=== PATIENT | male | born 1960 | race Caucasian/White ===

== ENCOUNTER 2020-10-14 14:36 | Emergency (ER) | payer MEDICAID, SELFPAY ==
[2020-10-14] VITALS (7 sets, daily range): BP systolic 123–153; BP diastolic 77–90; PULSE 60–76; RESP 17; TEMP 36.8; O2SAT 94–100; BMI 22.8
--- NOTE | 2020-10-14 14:39 | PC.NURSE ---
Trauma alert called @ 1438 MD cancelled trauma alert @ [id number]
--- NOTE | 2020-10-14 14:41 | XR_ITS ---
PROCEDURE: XR PELVIS 1-2V CLINICAL INDICATION: trauma Posttraumatic pain COMPARISON: No exams were available for comparison TECHNIQUE: XR Pelvis AP View FINDINGS: No fracture or dislocation is evident. No significant degenerative change. No lytic or blastic change. IMPRESSION: No acute findings. Dictated by: Omid Garcia MD 10/14/2020 15:13 Omid Garcia MD in [facility] 10/14/2020 15:13
--- NOTE | 2020-10-14 14:41 | XR_ITS ---
PROCEDURE: XR CHEST PORTABLE CLINICAL HISTORY: trauma Posttraumatic pain COMPARISON: CR CXR CHEST(2 VIEWS-NOT PORTABLE) from 10/06/2017 CR Chest from 04/19/2019 CR Chest from 05/02/2019 FINDINGS: The cardiomediastinal silhouette and pulmonary vascularity are within normal limits. The lungs are clear without infiltrates, suspicious nodules, or pleural effusions. No acute bony abnormalities. IMPRESSION: No acute findings. Dictated by: Oimd Garcia MD 10/14/2020 15:14 Omid Garcia MD in [facility] 10/14/2020 15:14
[2020-10-14 14:55] LABS: Chloride 103 mmol/L (98-107); Potassium 3.6 mmoL/L (3.5-5.1); Sodium 137 mmol/L (136-145)
[2020-10-14 14:57] LABS: Blood Urea Nitrogen 12 mg/dl (9-20)
[2020-10-14 14:58] LABS: Alanine Aminotransferase 36 U/L (12-78); Albumin Level 4.6 g/dl (3.5-5.0); Albumin/Globulin Ratio 1.6 (1.1-1.8); Alkaline Phosphatase 67 U/L (38-126); Anion Gap 10.6 mEq/L (5-15); Aspartate Amino Transferase 41 U/L (17-59); Bilirubin,Total 0.9 mg/dl (0.2-1.3); Calcium 9.7 mg/dl (8.4-10.2); Carbon Dioxide 27 mmol/L (22.0-30.0); Creatinine Clearance Estimated 70 mL/min (50-200); Estimated Glomerular Filt Rate 69 ml/min (>60); GFR (African American) 83 ML/MIN (>60); Globulin 2.9 g/dL (1.3-3.2); Glucose 145 mg/dl (74-100); Lipase 82 U/L (23-300); Total Protein,Serum 7.5 g/dl (6.3-8.2)
--- NOTE | 2020-10-14 14:58 | PC.NURSE ---
Radiology has been at bedside and is leaving now.
--- NOTE | 2020-10-14 15:08 | CT_ITS ---
PROCEDURE: CT BONY PELVIS CLINICAL INDICATION: fall from raya Blunt trauma with injury and pain, contusion/abrasion or hematoma following injury COMPARISON: No exams were available for comparison TECHNIQUE: Axial images obtained with sagittal and coronal reformats. All CT scans at the facility use one or more dose reduction, viz: automated exposure control, ma/kV adjustment per patient size (including targeted exams where dose is matched to indication, i.e. head), or iterative reconstruction technique. FINDINGS: Nondisplaced fracture involves the left L4 transverse process. There is fusion of the left SI joint. There are bilateral well-corticated densities at the anterior columns of the acetabuli consistent with os acetabuli. Hypertrophic changes are present along the greater trochanters of both femurs. There is mild distention of the urinary bladder. There are bilateral inguinal hernias containing fat. Mild osteoarthritic changes are present involving the hips IMPRESSION: 1. Nondisplaced fracture left L4 transverse process. 2. No other acute fracture apparent. 3. Distended urinary bladder. Bilateral inguinal hernias containing fat and small umbilical hernia containing fat. Dictated by: Omid Garcia MD 10/14/2020 18:21 Omid Garcia MD in [facility] 10/14/2020 18:21
--- NOTE | 2020-10-14 15:09 | CT_ITS ---
PROCEDURE: CT ABDOMEN PELVIS W CON CLINICAL INDICATION: fall from height Blunt trauma with injury and pain, contusion/abrasion or hematoma following injury COMPARISON: CT CT LUMBAR SPINE WO CON from 10/14/2020 TECHNIQUE: IV Contrast: 75ML Isovue 370 Oral Contrast None Axial images obtained with sagittal and coronal reformats. All CT scans at the facility use one or more dose reduction, viz: automated exposure control, ma/kV adjustment per patient size (including targeted exams where dose is matched to indication, i.e. head), or iterative reconstruction technique. FINDINGS: LOWER THORAX: No acute finding ABDOMEN & PELVIS: The liver, spleen gallbladder, adrenal glands, pancreas, showing no acute finding. There is mild prominence of the renal pelves on both sides. No perinephric hematoma or renal laceration. Bowel gas pattern is nonspecific with nondistended fluid-filled loops of small bowel noted in the pelvic region. The urinary bladder is distended. There is mild prominence of the prostate at 4.7 cm. There is some central prostate calcifications. There is a nondisplaced fracture involving the left transverse process of L4 and L2 best demonstrated on the lumbar spine CT.. Mild osteoarthritic changes are present in the hips with degenerative changes present in the lumbar spine. There are bilateral inguinal hernias which contain fat and a small umbilical hernia which contains fat. IMPRESSION: 1. Nondisplaced left L2 and L4 transverse process fractures. 2. Nonspecific mildly distended fluid-filled small bowel loops 3. Mildly prominent renal pelves on both sides Dictated by: Omid Garcia MD 10/14/2020 18:17 Omid Garcia MD in [facility] 10/14/2020 18:17
--- NOTE | 2020-10-14 15:09 | CT_ITS ---
PROCEDURE: CT THORACIC SPINE WO CON CLINICAL HISTORY: fall from height Blunt trauma with injury and pain, contusion/abrasion or hematoma following injury1 COMPARISON: No exams were available for comparison TECHNIQUE: Axial images obtained with sagittal and coronal reformats. All CT scans at the facility use one or more dose reduction, viz: automated exposure control, ma/kV adjustment per patient size (including targeted exams where dose is matched to indication, i.e. head), or iterative reconstruction technique. FINDINGS: There is mild multilevel thoracic spondylosis. No acute fracture or dislocation. No lytic or blastic change. IMPRESSION: No acute fracture. Mild multilevel thoracic spondylosis Dictated by: Omid Garcia MD 10/14/2020 18:28 Omid Garcia MD in [facility] 10/14/2020 18:28
--- NOTE | 2020-10-14 15:09 | CT_ITS ---
PROCEDURE: CT LUMBAR SPINE WO CON CLINICAL HISTORY: fall from height Blunt trauma with injury and pain, contusion/abrasion or hematoma following injury, injury with pain COMPARISON: CT CT ABDOMEN PELVIS W CON from 10/14/[address] BONY PELVIS from 10/14/2020 TECHNIQUE: Axial images obtained with sagittal and coronal reformats. All CT scans at the facility use one or more dose reduction, viz: automated exposure control, ma/kV adjustment per patient size (including targeted exams where dose is matched to indication, i.e. head), or iterative reconstruction technique. FINDINGS: Normal alignment. T12-L1: Mild degenerative disc disease. L1-L2: Mild degenerative disc disease with anterior osteophytes and bulging disc. L2-L3: Degenerative disc disease with small anterior osteophytes. There is a nondisplaced fracture involving the left transverse process of L2. Mild bulging disc. L3-L4: Degenerative disc disease with mild bulging disc. L4-5: Mild bulging disc with degenerative disc disease with nondisplaced fracture involving the lateral aspect of the transverse process of L4. There is bilateral foraminal lateral recess narrowing. L5-S1: Mild degenerative disc disease. There is fusion of the left SI joint. IMPRESSION: 1. Nondisplaced transverse process fractures on the left at L2 and L4. 2. Lumbar spondylosis as detailed above Dictated by: Omid Garcia MD 10/14/2020 18:25 Omid Garcia MD in [facility] 10/14/2020 18:25
--- NOTE | 2020-10-14 15:10 | CT_ITS ---
PROCEDURE: CT ANGIO CHEST CLINCIAL INDICATION: fall from height Andrea COMPARISON: CT ABDPELWO CT abdomen pelvis wo con from 04/19/[address] abdomen pelvis w con from 05/02/2019 TECHNIQUE: IV Contrast: 70ML Isovue 370 Axial images obtained with sagittal and coronal reformats. All CT scans at the facility use one or more dose reduction, viz: automated exposure control, ma/kV adjustment per patient size (including targeted exams where dose is matched to indication, i.e. head), or iterative reconstruction technique. FINDINGS: No evidence of aortic aneurysm dissection or pulmonary embolus. No mediastinal or hilar mass or adenopathy. There are some coronary artery calcifications noted. 4 mm noncalcified right upper lobe pulmonary nodule. 5 mm noncalcified nodule right middle lobe which may be slightly larger. No evidence of pneumothorax. No pulmonary contusion effusion or infiltrate. No acute bony anomaly. IMPRESSION: No acute finding. 5 mm right middle lobe nodule which may be slightly larger compared to the previous exam. Consider six-month follow-up to confirm stability. Dictated by: Omid Garcia MD 10/14/2020 18:10 Omid Garcia MD in [place] 10/14/2020 18:10
--- NOTE | 2020-10-14 15:11 | HMH.EDGENADL ---
ED Disposition Clinical Impression: Lumbar transverse process fracture Qualifiers: Encounter type: initial encounter Fracture type: closed Qualified Code(s): S32.009A - Unspecified fracture of unspecified lumbar vertebra, initial encounter for closed fracture Fall Qualifiers: Encounter type: initial encounter Qualified Code(s): W19.XXXA - Unspecified fall, initial encounter Disposition: Home, Self-Care Condition on Discharge: Fair Instructions: DI for Transverse Process Fracture Additional Instructions: You have been evaluated for polytrauma, diagnosed with 2 lumbar transverse process fractures. Please take Tylenol and Motrin for pain. Take [place] for extreme pain. Follow-up with your primary care physician in 1 to 2 days for symptom recheck. Follow-up with orthospine as needed. Return to the emergency department if you have any new or worsening symptoms, worsening pain, abdominal pain, nausea, vomiting, numbness or weakness in your lower extremities. Prescriptions: Hydrocodone/Acetaminophen [[place] 5-325 Tablet] 1 each PO Q6 PRN 3 Days #12 tab PRN Reason: (Second Vp Hr Assessment Use Only) Pain Per Pt Prescription Printed Ondansetron [Zofran 4mg ODT] 4 mg PO TIDP PRN #12 tab PRN Reason: Nausea Transmission Status: Pending to [facility]/pharmacy #[id number] Referrals: PCP,No [Primary Care Provider] - Time of Disposition: 17:11 - Critical Care Critical Care Time: No Attestation: On 10/14/20, the high probability of a clinically significant, sudden or life threatening deterioration of the following system(s) required my full and direct attention, intervention and personal management. The time I documented below is in addition to time spent performing reported procedures but includes the following listed in this critical care notation. Medical Decision Making - Medical Records Medical records reviewed: Yes: I reviewed the patient's medical records. - Gerald Inquiry Pt receiving controlled substance: No Vital Signs: 10/14/20 14:42 10/14/20 15:06 10/14/20 16:00 Pulse Rate [Left Radial] 68 76 71 Respiratory Rate 17 Blood Pressure [Right Arm] 153/90 H 123/77 136/86 Blood Pressure Mean [Right Arm] 111 92 102 Blood Pressure Source [Right Arm] Automatic Cuff Automatic Cuff Automatic Cuff Blood Pressure Position [Right Arm] Sitting Sitting Sitting 02 Sat by Pulse Oximetry 98 94 L 96 Oxygen Delivery Method Room Air Room Air Room Air 10/14/20 16:21 10/14/20 16:30 10/14/20 17:00 Pulse Rate [Left Radial] 64 60 63 Respiratory Rate Blood Pressure [Right Arm] 136/84 125/81 134/88 Blood Pressure Mean [Right Arm] 101 95 103 Blood Pressure Source [Right Arm] Automatic Cuff Automatic Cuff Automatic Cuff Blood Pressure Position [Right Arm] Sitting Sitting Sitting 02 Sat by Pulse Oximetry 100 98 97 Oxygen Delivery Method Room Air Room Air Room Air - Lab Data Lab Results 10/14/20 14:40: WBC 12.0 H, RBC 5.16, Hgb 15.9, Hct 47.4, MCV 91.9, MCH 30.9, MCHC 33.7, RDW 14.7, Plt Count 278, MPV 9.4, Neut % (Auto) 77.3, Lymph % (Auto) 16.1, [place] % (Auto) 5.5, Eos % (Auto) 0.3, Baso % (Auto) 0.8, Neut # (Auto) 9.3 H, Lymph # (Auto) 1.9, [place] # (Auto) 0.7, Eos # (Auto) 0.0, Baso # (Auto) 0.1 10/14/20 14:40: Sodium 137, Potassium 3.6, Chloride 103, Carbon Dioxide 27, Anion Gap 10.6, BUN 12, Creatinine 1.10, Estimated Creat Clear 70, Estimated GFR 69, Est GFR ( Amer) 83, Glucose 145 H, Calcium 9.7, Total Bilirubin 0.9, AST 41, ALT 36, Alkaline Phosphatase 67, Total Protein 7.5, Albumin 4.6, Globulin 2.9, Albumin/Globulin Ratio 1.6, Lipase 82 10/14/20 15:54: Urine Color Yellow, Urine Appearance Clear, Urine pH 6.0, Ur Specific Ward <= 1.005, Urine Protein Negative, Urine Glucose (UA) Negative, Urine Ketones Negative, Urine Blood Negative, Urine Nitrate Negative, Urine Bilirubin Negative, Urine Urobilinogen 0.2, Ur Leukocyte Esterase Negative, Ur Transition Epith Cell Occ Result diagrams: 10/14/20 14:40 10/14/20 14:40 Orders (Tests/Meds):
--- NOTE | 2020-10-14 15:33 | PC.NURSE ---
pt gone to radiology
--- NOTE | 2020-10-14 15:51 | PC.NURSE ---
pt returning from radiology
[2020-10-14 16:00] LABS: Basophils # 0.1 K/mm3 (0-0.2); Basophils % 0.8 % (0.1-2.0); Eosinophils % 0.3 % (0.1-12.0); Hematocrit 47.4 % (42.0-52.0); Hemoglobin 15.9 g/dL (14.1-18.0); Lymphocytes # 1.9 K/mm3 (0.7-4.5); Lymphocytes % 16.1 % (10-50); Mean Corpuscular HGB Conc 33.7 g/dL (31.8-35.4); Mean Corpuscular Hemoglobin 30.9 pg (27.0-31.2); Mean Corpuscular Volume 91.9 fl (80-94); Mean Platelet Volume 9.4 fl (7.4-10.4); Monocytes # 0.7 K/mm3 (0.1-1.0); Monocytes % 5.5 % (1.7-9.3); Neutrophils # 9.3 K/mm3 (1.8-7.8); Neutrophils % 77.3 % (37.0-80.0); Platelet Count 278 K/mm3 (142-424); Red Blood Count 5.16 M/mm3 (4.60-6.20); Red Cell Distribution Width 14.7 % (11.5-17.5)
[2020-10-14 16:16] LABS: Microscopic, Urine URINE MICROSCOPIC (MICROSCOPIC)
[2020-10-14 16:24] LABS: Appearance,Urine CLEAR (Clear); Bilirubin,Urine Negative (Negative); Blood, Urine Negative (Negative); Color,Urine YELLOW (Yellow); Glucose,Urine (UA) Negative (Negative); Ketones,Urine Negative (Negative); Leukocyte Esterase,Urine Negative (Negative); Nitrate,Urine Negative (Negative); Protein,Urine Negative (Negative); Specific Gravity, Urine <= 1.005 (1.005-1.030); Urobilinogen,Urine 0.2 EU/dl (0.2)
[2020-10-14 16:51] LABS: Transitional Epi Cells,Urine OCC #/lpf (0-3)
[2020-10-23 13:48] LABS: POC Glucose,Bedside 120 (70-110)
== END 2020-10-14 18:30 | disposition home or self-care (01) ==
PROVIDERS: Emergency Provider Emergency Medicine
DX: S32.029A Unspecified fracture of second lumbar vertebra, initial encounter for closed fracture (principal); W17.89XA Other fall from one level to another, initial encounter; Y92.73 Farm field as the place of occurrence of the external cause
CPT/HCPCS: 71045; 71275; 72128; 72131; 72170; 72192; 74177; 80053; 81001; 82962; 83690; 85025; 99283; Q9967

== ENCOUNTER 2021-05-16 17:19 | Emergency (ER) | payer BC, OTHER, SELFPAY ==
[2021-05-16 17:20] VITALS: BP 189/75; PULSE 81; RESP 18; TEMP 36.8; O2SAT 98; BMI 31.6
--- NOTE | 2021-05-16 17:34 | HMH.EDGENADL ---
ED Disposition Clinical Impression: Laceration Disposition: Home, Self-Care Condition on Discharge: Good Additional Instructions: Antibiotics as directed. Tylenol/Motrin for aches and pains. Keep wound clean and dry for the next 3 days. After that, you may get it wet but is the last thing wet and the first thing you dry. Do not scrub it dry. No submerging for 2 weeks. Follow-up with PCP for suture removal. Sutures out in 7 days. Referrals: Provider,Referral, [Primary Care Provider] - 3 days Time of Disposition: 17:57 - Critical Care Critical Care Time: No Attestation: On 05/16/21, the high probability of a clinically significant, sudden or life threatening deterioration of the following system(s) required my full and direct attention, intervention and personal management. The time I documented below is in addition to time spent performing reported procedures but includes the following listed in this critical care notation. Medical Decision Making - Medical Records Medical records reviewed: Yes: I reviewed the patient's medical records. - Gerald Inquiry Pt receiving controlled substance: No Medical Decision Narrative: 60yo M evaluated for laceration. Patient in no acute distress. See procedure note for details. Tolerated procedure well. Counseled on wound care, timing of suture removal, timing of follow-up, appropriate use of antibiotics. General Adult HPI - General Stated complaint: ao 05/15 @1700 HIT HEAD BY dIGER Time Seen by Provider: 05/16/21 17:34 Mode of Arrival: Ambulatory - History of Present Illness HPI narrative: 60yo M evaluated for laceration to the crown of his head. Patient was using a medical payment poster when it bounced up and he brought it down on top of his head. He denies LOC. He denies other injury. Not up-to-date on his tetanus shot. - Related Data Previous Rx's Medication Instructions Recorded Hydrocodone/Acetaminophen [[place] 1 each PO Q6 PRN 3 Days #12 tab 10/14/20 5-325 Tablet] Ondansetron [Zofran 4mg ODT] 4 mg PO TIDP PRN #12 tab 10/14/20 Allergies Allergy/AdvReac Type Severity Reaction Status Date / Time No Known Allergies Allergy Verified 05/02/19 20:12 [facility] History - Hepatitis A Screen Drug use history?: No Attestation statement:: This patient has been screened for Hepatitis A risk factors. I have reviewed the patient's past medical history: Yes Medical History: Denies:: Cancer, Diabetes Mellitus Type 1, Diabetes Mellitus Type 2, Hypertension, MRSA Other Surgeries: Yes: Other (unknown back disc around [id number]) Amputation: No - Social History Smoking Status: Never smoker Alcohol Intake: current Alcohol Intake Frequency:: holidays/special occasions only Occupational Status: unemployed Housing: house ROS Obtained: Yes All systems reviewed & no additional complaints - Integumentary/Breasts Skin/Breast: Reports as per HPI Physical Exam - General General appearance: alert, in no apparent distress - Head Head exam: normocephalic, other (Laceration) - Eye Eye exam: Present: normal appearance, PERRL, EOMI - ENT ENT exam: Present: normal exam - Neck Neck exam: Present: normal inspection - Chest Chest inspection: Present: normal inspection - Respiratory Respiratory exam: Absent: respiratory distress - Cardiovascular Cardiovascular exam: Present: regular rate, normal rhythm. Absent: JVD - Abdominal Exam Abdominal exam: Present: soft. Absent: distention, tenderness, guarding - Extremities Exam Extremities exam: Present: normal inspection, full ROM, normal capillary refill. Absent: calf tenderness - Neurological Exam Neurological exam: Present: alert, oriented X3, normal gait - Psychiatric Psychiatric exam: Present: normal affect, normal mood - Skin Skin exam: Present: warm, other (3 cm curvilinear laceration) - Lymphatic Lymphatic Findings: no adenopathy Procedures - Laceration Laceration 1
[2021-05-16 18:25] VITALS: BP 146/67; PULSE 78; RESP 18; TEMP 36.7; O2SAT 99
== END 2021-05-16 18:24 | disposition home or self-care (01) ==
PROVIDERS: Emergency Provider Family Medicine
DX: S01.01XA Laceration without foreign body of scalp, initial encounter (principal); W31.89XA Contact with other specified machinery, initial encounter; Y92.89 Other specified places as the place of occurrence of the external cause; Z23 Encounter for immunization
CPT/HCPCS: 12002; 90715; 99282

== ENCOUNTER 2021-05-23 12:28 | Emergency (ER) | payer SELFPAY ==
[2021-05-23 12:42] VITALS: PULSE 79; RESP 16; TEMP 36.7; O2SAT 99
[2021-05-23 12:43] VITALS: BP 132/87; PULSE 86; RESP 16; TEMP 36.6
== END 2021-05-23 12:44 | disposition home or self-care (01) ==
PROVIDERS: Emergency Provider Physician Assistant
DX: S01.01XD Laceration without foreign body of scalp, subsequent encounter (principal)

== ENCOUNTER 2021-08-08 14:41 | Emergency (ER) | payer BC, SELFPAY ==
--- NOTE | 2021-08-08 14:50 | XR_ITS ---
PROCEDURE INFORMATION: Exam: XR Left Ankle Exam date and time: 08/08/2021 2:50 PM Age: 60 years old Clinical indication: Injury or trauma; Fall; Blunt trauma; Ankle; Left TECHNIQUE: Imaging protocol: XR Left ankle. Views: 3 or more views. COMPARISON: No relevant prior studies available. FINDINGS: Bones/joints: There is no evidence of acute fracture. There is no evidence of joint malalignment or dislocation. Calcaneal spur is present. Calcific density is noted distal to the medial malleolus and is most likely related to old avulsion fracture or secondary center of ossification. Soft tissues: There are no soft tissue masses or fluid collections. IMPRESSION: 1. No evidence of acute fracture. 2. No evidence of acute dislocation.
[2021-08-08 15:47] VITALS: BP 130/85; PULSE 86; RESP 16; TEMP 36.7; O2SAT 98; BMI 32.5
--- NOTE | 2021-08-08 16:17 | HMH.EDUTC ---
[facility] [place] Clinical Impression: Left ankle sprain Qualifiers: Encounter type: initial encounter Involved ligament of ankle: unspecified ligament Qualified Code(s): S93.402A - Sprain of unspecified ligament of left ankle, initial encounter Disposition: Home, Self-Care Condition on Discharge: Good Instructions: How to Use Crutches, Ankle Sprain, DI for Ankle Sprain Additional Instructions: Rest the extremity, apply ice for 15 minutes as tolerated three or four times per day, Wear the ty wrap for compression, Elevate the extremity as tolerated while you are resting. Take ibuprofen for pain. I sent in a prescription to your pharmacy. Follow up with Dr. Arteaga (podiatry). Sometimes there can be fractures that don't show up well on the first set of x-rays. So, you should follow up I put in a referral but you need to call her office and schedule an appointment. Follow up with your regular doctor.if GO TO THE ER FOR ANY WORSENING SYMPTOMS Prescriptions: Ibuprofen [Ibuprofen 800mg Tablet] 800 mg PO Q8HP PRN #30 tab PRN Reason: Moderate Pain Transmission Status: Received by [facility][id number] Referrals: Provider,Key, [Primary Care Provider] - Roma Arteaga DPM [Staff Physician] - Forms: Work/School Release Time of Disposition: 17:16 Medical Decision Making - Medical Records Medical records reviewed: No: I reviewed the patient's medical records. - Gerald Inquiry Pt receiving controlled substance: No Vital Signs: 08/08/21 15:47 08/08/21 17:28 Temperature 98.1 F 98.1 F Temperature Source Oral Oral Pulse Rate 86 Pulse Rate [Apical] 86 Respiratory Rate 16 18 Blood Pressure 130/85 Blood Pressure [Right Arm] 130/85 Blood Pressure Mean [Right Arm] 100 Blood Pressure Source Automatic Cuff Blood Pressure Source [Right Arm] Automatic Cuff Blood Pressure Position Sitting Blood Pressure Position [Right Arm] Sitting 02 Sat by Pulse Oximetry 98 Oxygen Delivery Method Room Air Room Air - Radiology Data #1 Image(s): Ankle Image Reviewed: Yes I reviewed the patient's radiology image, Yes I have reviewed radiologist's interpretation Preliminary Findings: No Fracture Seen PROCEDURE INFORMATION: Exam: XR Left Ankle Exam date and time: 08/08/2021 2:50 PM Age: 60 years old Clinical indication: Injury or trauma; Fall; Blunt trauma; Ankle; Left TECHNIQUE: Imaging protocol: XR Left ankle. Views: 3 or more views. COMPARISON: No relevant prior studies available. FINDINGS: Bones/joints: There is no evidence of acute fracture. There is no evidence of joint malalignment or dislocation. Calcaneal spur is present. Calcific density is noted distal to the medial malleolus and is most likely related to old avulsion fracture or secondary center of ossification. Soft tissues: There are no soft tissue masses or fluid collections. IMPRESSION: 1. No evidence of acute fracture. 2. No evidence of acute dislocation. [facility] [place] - General Stated complaint: a/o tripped left ankle pain Time Seen by Provider: 08/08/21 16:17 Mode of Arrival: Ambulatory Source of Information: Patient Limitations: No Limitations Description of Symptoms (Recalled from Triage Doc. 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 He states he heard a pop and began having significant pain afterwards. When he bears weight or tries to walk on it it hurts worse. - Related Data Previous Rx's Medication Instructions Recorded Hydrocodone/Acetaminophen [[place] 1 each PO Q6 PRN 3 Da
[2021-08-08 17:28] VITALS: BP 130/85; PULSE 86; RESP 18; TEMP 36.7; O2SAT 98
== END 2021-08-08 17:30 | disposition home or self-care (01) ==
PROVIDERS: Emergency Provider Nurse Practitioner Family
DX: S93.402A Sprain of unspecified ligament of left ankle, initial encounter (principal); W17.2XXA Fall into hole, initial encounter
CPT/HCPCS: 73610; 99202; G0463

== ENCOUNTER 2021-08-11 17:12 | Emergency (ER) | payer BC, SELFPAY ==
[2021-08-11 17:13] VITALS: BP 127/70; PULSE 80; RESP 18; TEMP 36.9; O2SAT 97; BMI 29.2
[2021-08-11 17:21] VITALS: BMI 31.0
--- NOTE | 2021-08-11 17:22 | XR_ITS ---
PROCEDURE INFORMATION: Exam: XR Left Ankle Exam date and time: 08/11/2021 5:22 PM Age: 60 years old Clinical indication: Pain; Ankle; Left; Additional info: Injury TECHNIQUE: Imaging protocol: XR Left ankle. Views: 3 or more views. Total images: 3 COMPARISON: CR XR ANKLE LT MIN 3V 08/08/2021 3:23 PM FINDINGS: Bones/joints: No acute fractures are identified. There is a subtle osteochondral defect at the lateral edge of the talar dome weight-bearing articular surface measuring about 8 mm transverse by 2 mm in depth. This is age indeterminate. Unchanged 3 mm calcification at the tip of the medial malleolus with corticated margins favoring chronic ossification related to remote prior injury or heterotopic ossification. No gross joint effusion. Small plantar calcaneal spur. Soft tissues: Question mild lateral and posterior soft tissue swelling. Other findings: Normal alignment. IMPRESSION: 1. There is a subtle age indeterminate osteochondral defect involving the lateral weight-bearing articular surface of the talar dome measuring about 8 mm in diameter by 2 mm in depth. Characterization is limited radiographically, consider follow-up MRI or MRI arthrography characterization as clinically indicated. 2. No gross macrofractures are identified. 3. Additional nonemergent findings detailed above.
--- NOTE | 2021-08-11 18:18 | HMH.EDGENADL ---
ED Disposition Clinical Impression: Osteochondral defect of ankle Ankle sprain Qualifiers: Encounter type: initial encounter Involved ligament of ankle: unspecified ligament Laterality: left Qualified Code(s): S93.402A - Sprain of unspecified ligament of left ankle, initial encounter Disposition: Home, Self-Care Condition on Discharge: Good Additional Instructions: Walking boot except for bathing and when sleeping. No weightbearing to your hurt extremity. Follow-up with podiatry as soon as possible. Referrals: Provider,Referral, [Primary Care Provider] - Roma Arteaga DPM [Staff Physician] - (call for an appt) Time of Disposition: 18:25 - Critical Care Critical Care Time: No Attestation: On 08/11/21, the high probability of a clinically significant, sudden or life threatening deterioration of the following system(s) required my full and direct attention, intervention and personal management. The time I documented below is in addition to time spent performing reported procedures but includes the following listed in this critical care notation. Medical Decision Making - Medical Records Medical records reviewed: Yes: I reviewed the patient's medical records. - Gerald Inquiry Pt receiving controlled substance: No Vital Signs: 08/11/21 17:13 Temperature 98.4 F Temperature Source Oral Pulse Rate [Left Radial] 80 Respiratory Rate 18 Blood Pressure [Right Arm] 127/70 Blood Pressure Mean [Right Arm] 89 Blood Pressure Source [Right Arm] Automatic Cuff Blood Pressure Position [Right Arm] Sitting 02 Sat by Pulse Oximetry 97 Oxygen Delivery Method Room Air - Radiology Data #1 Image(s): Ankle Image Reviewed: Yes I reviewed the patient's radiology results Preliminary Findings: Abnormal suspected OCD Medical Decision Narrative: 60yo M evaluated for ankle pain. X-rays concerning for osteochondral defect in the weightbearing zone. Patient placed in a walking boot. He already has crutches at home. Instructed no weightbearing on his affected limb. Patient already has the phone number for Dr. Arteaga. Encouraged him to continue trying to arrange appointment. General Adult HPI - General Chief complaint: Extremity Injury, Lower Stated complaint: AO 08/11 injured L ankle Time Seen by Provider: 08/11/21 18:18 Mode of Arrival: Ambulatory Limitations: No Limitations Description of Symptoms (Recalled from ER Triage Doc. by RN): re twisted his left ankle today after he injuried it on Tuesday - History of Present Illness HPI narrative: 60yo M reports the emergency department after reinjuring his left ankle. Patient reports he initially injured it on Tuesday and then twisted again today. Planes of swelling. Denies any other injury. Has not seriously injured or had surgery on this joint previously. - Related Data Previous Rx's Medication Instructions Recorded Hydrocodone/Acetaminophen [[place] 1 each PO Q6 PRN 3 Days #12 tab 10/14/20 5-325 Tablet] Ondansetron [Zofran 4mg ODT] 4 mg PO TIDP PRN #12 tab 10/14/20 Amoxicillin/Potassium Clav 1 tab PO Q12H #9 tab 05/16/21 [Augmentin 875-125 Tablet] Ibuprofen [Ibuprofen 800mg 800 mg PO Q8HP PRN #30 tab 08/08/21 Tablet] Allergies Allergy/AdvReac Type Severity Reaction Status Date / Time No Known Allergies Allergy Verified 05/02/19 20:12 [facility] History - Hepatitis A Screen Drug use history?: No High risk sexual behaviors?: No History of sexually transmitted infection?: No Currently employed?: No Childcare worker?: No Do you have indoor plumbing?: Yes Do you have electricity?: Yes Attestation statement:: This patient has been screened for Hepatitis A risk factors. I have reviewed the patient's past medical history: Yes Medical History: Denies:: Cancer, Diabetes Mellitus Type 1, Diabetes Mellitus Type 2, Hypertension, MRSA Other Surgeries: Yes: Other (unknown back disc around [phone]) Amputation: No - Social History Da
[2021-08-11 18:42] VITALS: BP 132/87; PULSE 80; RESP 20; TEMP 36.9; O2SAT 100
== END 2021-08-11 18:42 | disposition home or self-care (01) ==
PROVIDERS: Emergency Provider Family Medicine
DX: S93.402A Sprain of unspecified ligament of left ankle, initial encounter (principal); X50.1XXA Overexertion from prolonged static or awkward postures, initial encounter; Y92.9 Unspecified place or not applicable; M95.8 Other specified acquired deformities of musculoskeletal system
CPT/HCPCS: 73610; 99282

== ENCOUNTER 2021-11-06 13:50 | Emergency (ER) | payer BC, SELFPAY ==
[2021-11-06 14:50] VITALS: BP 135/74; PULSE 65; RESP 18; TEMP 37.2; O2SAT 95; BMI 31.0
--- NOTE | 2021-11-06 15:03 | XR_ITS ---
PROCEDURE: XR ANKLE RT MIN 3V CLINICAL INDICATION: pain COMPARISON: CR XR ANKLE LT MIN 3V from 08/08/2021 CR XR ANKLE LT MIN 3V from 08/11/2021 FINDINGS: At the tip the lateral malleolus medially on the mortise view there is a triangular-shaped density. This could represent a subtle avulsion fracture. Please correlate as the patient's area pain and tenderness. No other significant anomalies are evident. The joint spaces are well-preserved. No significant degenerative/arthritic changes. No erosive changes evident. Other findings:None. IMPRESSION: Questionable small avulsion fracture at the medial tip the distal fibula otherwise negative Dictated by: Omid Garcia MD 11/06/2021 16:30 Omid Garcia MD in [place] 11/06/2021 16:30
--- NOTE | 2021-11-06 15:03 | XR_ITS ---
PROCEDURE: XR TIBIA FIBULA RT 2V CLINICAL INDICATION: pain COMPARISON: No exams were available for comparison FINDINGS: No fracture or dislocation. No lytic or blastic change. There is normal mineralization. The joint spaces are well-preserved. No significant degenerative/arthritic changes. No erosive changes evident. Other findings:None. IMPRESSION: No acute findings. Dictated by: Omid Garcia MD 11/06/2021 16:27 Omid Garcia MD in [place] 11/06/2021 16:27
--- NOTE | 2021-11-06 15:03 | XR_ITS ---
PROCEDURE: XR KNEE RT 3V CLINICAL INDICATION: pain COMPARISON: CR [id number] XR knee RT 3V from 08/06/2018 FINDINGS: No fracture or dislocation. No lytic or blastic change. There is normal mineralization. The joint spaces are well-preserved. No significant degenerative/arthritic changes. No erosive changes evident. Other findings:There appears to be a small suprapatellar effusion. IMPRESSION: Possible small suprapatellar effusion otherwise negative Dictated by: Omid Garcia MD 11/06/2021 16:26 Omid Garcia MD in [place] 11/06/2021 16:26
--- NOTE | 2021-11-06 16:43 | HMH.EDUTC ---
[facility] [place] Disposition Clinical Impression: Avulsion fracture Disposition: Home, Self-Care Condition on Discharge: Good Instructions: DI for Avulsion Fracture, DI for Crush Injury Additional Instructions: Rest the extremity, Wear the boot that you have at home already, apply ice for 15 minutes as tolerated three or four times per day, Elevate the extremity as tolerated while you are resting. Take ibuprofen for pain. I sent in a prescription to your pharmacy. Follow up with Dr. Arteaga (Podiatry). I put in a referral but you need to call his office and schedule an appointment. Follow up with your regular doctor. GO TO THE ER FOR ANY WORSENING SYMPTOMS Prescriptions: Ibuprofen [Ibuprofen 800mg Tablet] 800 mg PO Q8HP PRN #30 tab PRN Reason: Moderate Pain Transmission Status: Received by [id number] Referrals: Provider,Referral, [Primary Care Provider] - Roma Arteaga DPM [Staff Physician] - Time of Disposition: 16:50 Medical Decision Making - Medical Records Medical records reviewed: No: I reviewed the patient's medical records. - Gerald Inquiry Pt receiving controlled substance: No Vital Signs: 11/06/21 14:50 11/06/21 16:45 Temperature 98.9 F 98.9 F Temperature Source Oral Pulse Rate 65 Pulse Rate [Right Brachial] 65 Respiratory Rate 18 18 Blood Pressure 135/74 Blood Pressure [Right Arm] 135/74 Blood Pressure Mean [Right Arm] 94 Blood Pressure Source [Right Arm] Automatic Cuff Blood Pressure Position [Right Arm] Sitting 02 Sat by Pulse Oximetry 95 Oxygen Delivery Method Room Air - Radiology Data #1 Image(s): Ankle Image Reviewed: Yes I reviewed the patient's radiology image, Yes I have reviewed radiologist's interpretation Preliminary Findings: Abnormal PROCEDURE: XR ANKLE RT MIN 3V CLINICAL INDICATION: pain COMPARISON: CR XR ANKLE LT MIN 3V from 08/08/2021 CR XR ANKLE LT MIN 3V from 08/11/2021 FINDINGS: At the tip the lateral malleolus medially on the mortise view there is a triangular-shaped density. This could represent a subtle avulsion fracture. Please correlate as the patient's area pain and tenderness. No other significant anomalies are evident. The joint spaces are well-preserved. No significant degenerative/arthritic changes. No erosive changes evident. Other findings:None. IMPRESSION: Questionable small avulsion fracture at the medial tip the distal fibula otherwise negative Dictated by: Omid Garcia MD 11/06/2021 16:30 Omid Garcia MD in [place] 11/06/2021 16:30 #2 Image(s): Knee Image Reviewed: Yes I reviewed the patient's radiology image, Yes I have reviewed radiologist's interpretation Preliminary Findings: Normal/NAD, No Fracture Seen PROCEDURE: XR KNEE RT 3V CLINICAL INDICATION: pain COMPARISON: CR [id number] XR knee RT 3V from 08/06/2018 FINDINGS: No fracture or dislocation. No lytic or blastic change. There is normal mineralization. The joint spaces are well-preserved. No significant degenerative/arthritic changes. No erosive changes evident. Other findings:There appears to be a small suprapatellar effusion. IMPRESSION: Possible small suprapatellar effusion otherwise negative Dictated by: Omid Garcia MD 11/06/2021 16:26 Omid Garcia MD in [place] 11/06/2021 16:26 #3 Image(s): Tib/Fib Image Reviewed: Yes I reviewed the patient's radiology results, Yes I discussed the image results w/the radiologist Preliminary Findings: No Fracture Seen PROCEDURE: XR TIBIA FIBULA RT 2V CLINICAL INDICATION: pain COMPARISON: No exams were available for comparison FINDINGS: No fracture or dislocation. No lytic or blastic change. There is normal mineralization. The joint spaces are well-preserved. No significant degenerative/arthritic changes. No erosive changes evident. Other findings:None. IMPRESSION: No acute findings. Dictated by: Omid Garcia MD 11/06/2021 16:27 [place]
[2021-11-06 16:45] VITALS: BP 135/74; PULSE 65; RESP 18; TEMP 37.2; O2SAT 95
--- NOTE | 2021-11-06 16:46 | PC.NURSE ---
PATIENT REPORTS HE CURRENTLY SEES DR. HINES AND HAS A WALKING BOOT AT HOME. REFUSES CRUTCHES AT THIS TIME
== END 2021-11-06 16:55 | disposition home or self-care (01) ==
PROVIDERS: Emergency Provider Nurse Practitioner Family
DX: S82.831A Other fracture of upper and lower end of right fibula, initial encounter for closed fracture (principal); W55.12XA Struck by horse, initial encounter; Y92.89 Other specified places as the place of occurrence of the external cause
CPT/HCPCS: 73562; 73590; 73610; 99202; G0463

== ENCOUNTER 2021-12-05 15:46 | Emergency (ER) | payer SELFPAY ==
[2021-12-05] VITALS (8 sets, daily range): BP systolic 121–135; BP diastolic 72–89; PULSE 80–101; RESP 14–20; TEMP 36.9; O2SAT 92–98; BMI 28.0
--- NOTE | 2021-12-05 15:39 | ECG_ITS ---
APPROVED REPORT Exam: Resting ECG HR:94 bpm ECG Measurements Heart Rate 94 AXES TN 144 P 47 QRSd 82 QRS -6 QT 362 T 12 QTc 452 Conclusion Normal sinus rhythm Normal ECG Electronically signed by : Jose Manuel Fishman MD 12/08/2021 20:00:36
--- NOTE | 2021-12-05 15:53 | XR_ITS ---
PROCEDURE INFORMATION: Exam: XR Chest Exam date and time: 12/05/2021 3:53 PM Age: 61 years old Clinical indication: Shortness of breath; Additional info: Cough, SOA TECHNIQUE: Imaging protocol: XR of the chest. Views: 1 view. COMPARISON: CR XR CHEST PORTABLE 10/14/2020 2:48 PM FINDINGS: Lungs: Subtle airspace disease/atelectasis right and left lung bases left greater than right. Pleural spaces: Unremarkable. No pleural effusion. No pneumothorax. Heart/Mediastinum: Unremarkable. No cardiomegaly. Bones/joints: Unremarkable. IMPRESSION: Subtle airspace disease/atelectasis right and left lung bases left greater than right.
--- NOTE | 2021-12-05 16:35 | CT_ITS ---
PROCEDURE INFORMATION: Exam: CT Abdomen And Pelvis With Contrast Exam date and time: 12/05/2021 4:35 PM Age: 61 years old Clinical indication: Abdominal tenderness; Additional info: Ruq epigastric pain/ pressure/ TECHNIQUE: Imaging protocol: Computed tomography of the abdomen and pelvis with contrast. Radiation optimization: All CT scans at this facility use at least one of these dose optimization techniques: automated exposure control; mA and/or kV adjustment per patient size (includes targeted exams where dose is matched to clinical indication); or iterative reconstruction. Contrast material: ISOVUE; Contrast volume: 75 ml; Contrast route: IV; COMPARISON: CT ABDOMEN PELVIS W CON 10/14/2020 3:37 PM FINDINGS: Lungs: Tiny calcified granuloma in the right middle lobe. 9 mm subpleural nodule at the left lung base is unchanged. Mild bibasilar atelectasis. Liver: Normal. No mass. Gallbladder and bile ducts: Normal. No calcified stones. No ductal dilation. Pancreas: Normal. No ductal dilation. Spleen: Normal. No splenomegaly. Adrenal glands: Normal. No mass. Kidneys and ureters: Normal. No hydronephrosis. Stomach and bowel: Unremarkable. No obstruction. No mucosal thickening. Appendix: No evidence of appendicitis. Intraperitoneal space: Unremarkable. No free air. No significant fluid collection. Vasculature: Unremarkable. No abdominal aortic aneurysm. Lymph nodes: Unremarkable. No enlarged lymph nodes. Urinary bladder: Unremarkable as visualized. Reproductive: Unremarkable as visualized. Bones/joints: Unremarkable. No acute fracture. Soft tissues: Unremarkable. IMPRESSION: 1. No acute findings within the abdomen or pelvis. 2. 9 mm subpleural nodule at the left lung base is unchanged. For both low risk and high risk patients, consider CT Chest at 3 months, PET/CT or biopsy. (Reference: Sky) REFERENCES: Sky Mendez et al. Guidelines for Management of Incidental Pulmonary Nodules Detected on CT Images: From the Fleischner Society 2017. Radiology. 2017;284(1):228-243.
[2021-12-05 16:44] LABS: Basophils # 0.1 K/mm3 (0-0.2); Basophils % 2.3 % (0.1-2.0); Eosinophils # 0.1 K/mm3 (0.0-0.4); Eosinophils % 1.9 % (0.1-12.0); Hematocrit 48.8 % (42.0-52.0); Hemoglobin 15.9 g/dL (14.1-18.0); Lymphocytes # 1.6 K/mm3 (0.7-4.5); Lymphocytes % 34.4 % (10-50); Mean Corpuscular HGB Conc 32.5 g/dL (31.8-35.4); Mean Corpuscular Hemoglobin 30.6 pg (27.0-31.2); Mean Platelet Volume 7.9 fl (7.4-10.4); Monocytes # 0.5 K/mm3 (0.1-1.0); Neutrophils # 2.4 K/mm3 (1.8-7.8); Neutrophils % 50.4 % (37.0-80.0); Platelet Count 258 K/mm3 (142-424); Red Blood Count 5.19 M/mm3 (4.60-6.20); Red Cell Distribution Width 13.2 % (11.5-17.5); White Blood Count 4.7 K/mm3 (4.8-10.8)
[2021-12-05 16:49] LABS: Alanine Aminotransferase 35 U/L (12-78); Albumin Level 4.6 g/dl (3.5-5.0); Albumin/Globulin Ratio 1.5 (1.1-1.8); Alkaline Phosphatase 63 U/L (38-126); Anion Gap 12.7 mEq/L (5-15); Aspartate Amino Transferase 51 U/L (17-59); Bilirubin,Total 0.4 mg/dl (0.2-1.3); Blood Urea Nitrogen 8 mg/dl (9-20); Calcium 9.3 mg/dl (8.4-10.2); Carbon Dioxide 29 mmol/L (22.0-30.0); Chloride 100 mmol/L (98-107); Creatinine Clearance Estimated 81 mL/min (50-200); Estimated Glomerular Filt Rate 62 ml/min (>60); GFR (African American) 75 ML/MIN (>60); Glucose 107 mg/dl (74-100); Potassium 3.7 mmoL/L (3.5-5.1); Sodium 138 mmol/L (136-145); Total Protein,Serum 7.6 g/dl (6.3-8.2)
[2021-12-05 16:50] LABS: Lipase 74 U/L (23-300)
[2021-12-05 16:50] LABS: Influenza A, PCR Not Detected (NotDetected); Influenza B, PCR Not Detected (NotDetected)
[2021-12-05 16:53] LABS: D-Dimer 0.79 ug/mL (0.0-0.5)
[2021-12-05 17:00] LABS: NT Pro Brain Natriuretic Pep. 35.4 pg/mL (0-125)
[2021-12-05 17:11] LABS: Troponin I < 0.01 ng/ml (0.00-0.034)
[2021-12-05 17:31] LABS: Microscopic, Urine URINE MICROSCOPIC (MICROSCOPIC)
--- NOTE | 2021-12-05 17:31 | HMH.EDGENADL ---
ED Disposition Clinical Impression: COVID Disposition: Home, Self-Care Condition on Discharge: Good Additional Instructions: Please make sure to follow up with your primary care doctor regarding your pulmonary nodule. If your condition worsens or any other concerns arise, please return to the emergency department. Isolate per CDC recommendations. Referrals: Provider,Referral, [Primary Care Provider] - - Critical Care Critical Care Time: No Attestation: On 12/05/21, the high probability of a clinically significant, sudden or life threatening deterioration of the following system(s) required my full and direct attention, intervention and personal management. The time I documented below is in addition to time spent performing reported procedures but includes the following listed in this critical care notation. Medical Decision Making - Medical Records Medical records reviewed: Yes: I reviewed the patient's medical records. - Gerald Inquiry Pt receiving controlled substance: Yes Gerald was queried for this patient: No Risks and benefits of using a controlled substance: were not discussed with pt by me Vital Signs: 12/05/21 15:46 12/05/21 16:00 12/05/21 16:30 Temperature 98.4 F Temperature Source Oral Pulse Rate 101 H 92 H Pulse Rate [Right Radial] 94 H Respiratory Rate 18 15 16 Blood Pressure 124/84 135/74 Blood Pressure [Right Arm] 124/84 Blood Pressure Mean [Right Arm] 97 Blood Pressure Source [Right Arm] Automatic Cuff Blood Pressure Position [Right Arm] Sitting 02 Sat by Pulse Oximetry 92 L 95 95 Oxygen Delivery Method Room Air 12/05/21 17:00 12/05/21 17:30 12/05/21 18:00 Temperature Temperature Source Pulse Rate 80 84 86 Pulse Rate [Right Radial] Respiratory Rate 15 14 17 Blood Pressure 125/85 126/84 130/72 Blood Pressure [Right Arm] Blood Pressure Mean [Right Arm] Blood Pressure Source [Right Arm] Blood Pressure Position [Right Arm] 02 Sat by Pulse Oximetry 98 95 94 L Oxygen Delivery Method 12/05/21 18:30 Temperature Temperature Source Pulse Rate 87 Pulse Rate [Right Radial] Respiratory Rate 18 Blood Pressure 121/83 Blood Pressure [Right Arm] Blood Pressure Mean [Right Arm] Blood Pressure Source [Right Arm] Blood Pressure Position [Right Arm] 02 Sat by Pulse Oximetry 95 Oxygen Delivery Method - Lab Data Lab Results 12/05/21 15:47: WBC 4.7 L, RBC 5.19, Hgb 15.9, Hct 48.8, MCV 94.0, MCH 30.6, MCHC 32.5, RDW 13.2, Plt Count 258, MPV 7.9, Neut % (Auto) 50.4, Lymph % (Auto) 34.4, [place] % (Auto) 11.0 H, Eos % (Auto) 1.9, Baso % (Auto) 2.3 H, Neut # (Auto) 2.4, Lymph # (Auto) 1.6, [place] # (Auto) 0.5, Eos # (Auto) 0.1, Baso # (Auto) 0.1 12/05/21 15:47: Sodium 138, Potassium 3.7, Chloride 100, Carbon Dioxide 29, Anion Gap 12.7, BUN 8 L, Creatinine 1.20, Estimated Creat Clear 81, Estimated GFR 62, Est GFR ( Amer) 75, Glucose 107 H, Calcium 9.3, Total Bilirubin 0.4, AST 51, ALT 35, Alkaline Phosphatase 63, Troponin I < 0.01, Total Protein 7.6, Albumin 4.6, Globulin 3.0, Albumin/Globulin Ratio 1.5 12/05/21 15:47: D-Dimer 0.79 H 12/05/21 15:47: NT-Pro-B Natriuret Pep 35.4 12/05/21 15:47: Lipase 74 12/05/21 15:50: SARS-CoV-2 (PCR) Detected A, Influenza A Untype (PCR) Not detected, Influenza Type B (PCR) Not detected 12/05/21 17:18: Urine Color Yellow, Urine Appearance Clear, Urine pH 5.0, Ur Specific [place] >= 1.030, Urine Protein Trace, Urine Glucose (UA) Negative, Urine Ketones Negative, Urine Blood Negative, Urine Nitrate Negative, Urine Bilirubin Negative, Urine Urobilinogen 0.2, Ur Leukocyte Esterase Negative, Urine WBC Occasional, Amorphous Sediment 1+ 12/05/21 17:18: Lactate 1.1 12/05/21 19:30: Troponin I < 0.01 Result diagrams: 12/05/21 15:47 12/05/21 15:47 Orders (Tests/Meds): ED MEDICATIONS Discontinued Medications Generic Name Dose Route Start Last Admin Trade Name Freq PRN Reason Stop Dose Admin Acetaminophen 1
[2021-12-05 18:00] LABS: Appearance,Urine CLEAR (Clear); Bilirubin,Urine Negative (Negative); Blood, Urine Negative (Negative); Color,Urine YELLOW (Yellow); Glucose,Urine (UA) Negative (Negative); Ketones,Urine Negative (Negative); Leukocyte Esterase,Urine Negative (Negative); Nitrate,Urine Negative (Negative); Protein,Urine TRACE (Negative); Specific Gravity, Urine >= 1.030 (1.005-1.030); Urobilinogen,Urine 0.2 EU/dl (0.2)
[2021-12-05 18:02] LABS: Coronavirus 19, PCR Detected (NotDetected)
[2021-12-05 18:06] LABS: Lactic Acid 1.1 mmol/L (0.7-2.1)
[2021-12-05 18:18] LABS: Amorphous Sediment,Urine 1+ /lpf; WBC,Urine Occasional #/hpf (0-3)
[2021-12-05 20:01] LABS: Troponin I < 0.01 ng/ml (0.00-0.034)
== END 2021-12-05 21:53 | disposition home or self-care (01) ==
PROVIDERS: Emergency Provider Emergency Medicine
DX: U07.1 COVID-19 (principal); R07.89 Other chest pain
CPT/HCPCS: 36415; 71045; 74177; 80053; 81001; 83605; 83690; 83880; 84484; 85025; 85378; 93005; 96374; 96375; 99284; C9803; J2405; Q9967; U0003; U0005

== ENCOUNTER 2021-12-16 18:25 | Inpatient (IN) | payer SELFPAY ==
--- NOTE | 2021-12-16 18:25 | ECG_ITS ---
APPROVED REPORT Exam: Resting ECG HR:112 bpm ECG Measurements Heart Rate 112 AXES TN 130 P 46 QRSd 95 QRS -28 QT 335 T 50 QTc 401 Conclusion SINUS TACHYCARDIA BORDERLINE LEFT AXIS DEVIATION [QRS AXIS < -20] NONSPECIFIC T-WAVE ABNORMALITY ABNORMAL RHYTHM ECG UNCONFIRMED REPORT Electronically signed by : Jose Manuel Fishman MD 12/21/2021 17:33:45
[2021-12-16 18:29] VITALS: BP 131/80; PULSE 119; RESP 22; TEMP 37.7; O2SAT 89; BMI 27.3
[2021-12-16 18:31] VITALS: BMI 20.7
--- NOTE | 2021-12-16 18:32 | XR_ITS ---
PROCEDURE INFORMATION: Exam: XR Chest Exam date and time: 12/16/2021 6:32 PM Age: 61 years old Clinical indication: Shortness of breath; Additional info: SOA, prod cough TECHNIQUE: Imaging protocol: XR of the chest. Views: 1 view. COMPARISON: CR XR CHEST PORTABLE 12/05/2021 3:59 PM FINDINGS: Lungs: Increasing bilateral airspace consolidation. Most of the increase is in the mid and lower lungs. The upper lungs are relatively clear. Pleural spaces: Unremarkable. No pleural effusion. No pneumothorax. Heart/Mediastinum: Unremarkable. No cardiomegaly. Bones/joints: Unremarkable. IMPRESSION: Increasing bilateral airspace consolidation is most likely progression of pneumonia. This may represent a community acquired or hospital acquired bacterial pneumonia. Viral pneumonia is also possible.
--- NOTE | 2021-12-16 18:33 | HMH.EDGENADL ---
ED Disposition Clinical Impression: Pneumonia due to COVID-19 virus Respiratory failure with hypoxia Qualifiers: Chronicity: acute Qualified Code(s): J96.01 - Acute respiratory failure with hypoxia Disposition: Admitted As Inpatient Condition on Discharge: Serious Referrals: Jose Manuel Fishman MD [Primary Care Provider] - - Critical Care Critical Care Time: Yes Attestation: On , the high probability of a clinically significant, sudden or life threatening deterioration of the following system(s) required my full and direct attention, intervention and personal management. The time I documented below is in addition to time spent performing reported procedures but includes the following listed in this critical care notation. Total Critical Care Time: 30 Vital system(s) involved:: Respiratory Failure My critical care processes included: Assessment & monitoring of V/S, Initial and Re-exams, Data Review/Interpretation, Coordinating Care, Medication Orders and management, Documentation Medical Decision Making - Medical Records Medical records reviewed: Yes: I reviewed the patient's medical records. MR Comment: Reviewed emergency department record 12/05/2021, diagnosed with Covid at that time. Presented with chest pain. - Gerald Inquiry Pt receiving controlled substance: No Vital Signs: 12/16/21 18:29 Temperature 100 F H Temperature Source Oral Pulse Rate [Right Radial] 119 H Respiratory Rate 22 Blood Pressure [Right Arm] 131/80 Blood Pressure Mean [Right Arm] 97 Blood Pressure Source [Right Arm] Automatic Cuff Blood Pressure Position [Right Arm] Sitting 02 Sat by Pulse Oximetry 89 L Oxygen Delivery Method Room Air - Lab Data Lab Results 12/16/21 18:35: WBC 8.6, RBC 5.08, Hgb 15.3, Hct 44.5, MCV 87.4, MCH 30.1, MCHC 34.4, RDW 12.5, Plt Count 495 H, MPV 7.8, Neut % (Auto) 89.9 H, Lymph % (Auto) 5.5 L, [place] % (Auto) 2.1, Eos % (Auto) 0.6, Baso % (Auto) 1.9, Neut # (Auto) 7.7, Lymph # (Auto) 0.5 L, [place] # (Auto) 0.2, Eos # (Auto) 0.1, Baso # (Auto) 0.2 12/16/21 18:35: Sodium 130 L, Potassium 3.3 L, Chloride 89 L, Carbon Dioxide 31 H, Anion Gap 13.3, BUN 14, Creatinine 1.00, Estimated Creat Clear 71, Estimated GFR 76, Est GFR ( Amer) 93, Glucose 118 H, Calcium 8.7, Troponin I 0.02 12/16/21 18:50: SARS-CoV-2 (PCR) Detected A, Influenza A Untype (PCR) Not detected, Influenza Type B (PCR) Not detected 12/16/21 19:30: Lactate Dehydrogenase 152 L, C-Reactive Protein 69.0 H Result diagrams: 12/16/21 18:35 12/16/21 18:35 Orders (Tests/Meds): ED MEDICATIONS Generic Name Dose Route Start Last Admin Trade Name Freq PRN Reason Stop Dose Admin Dexamethasone Sodium Phosphate 6 mg 12/16/21 19:44 12/16/21 20:01 Dexamethasone 4mg/Ml 1ml Vial IV 01/15/22 19:43 6 mg DAILY CONOR Administration Sodium Chloride 1,000 mls @ 999 mls/hr 12/16/21 18:45 12/16/21 18:45 Sod Chlor 0.9% 1000ml Bag IV 12/16/21 19:45 999 mls/hr .Q1H1M CONOR Administration Ceftriaxone Sodium 1 gm/ 50 mls @ 100 mls/hr 12/16/21 19:30 12/16/21 20:03 Sodium Chloride IV 12/30/21 19:29 100 mls/hr Q24H CONOR Administration Azithromycin 500 mg/ Sodium 250 mls @ 250 mls/hr 12/16/21 19:30 Chloride IV 12/30/21 19:29 Q24H CONOR Discontinued Medications Generic Name Dose Route Start Last Admin Trade Name Freq PRN Reason Stop Dose Admin Acetaminophen 1,000 mg 12/16/21 18:55 12/16/21 18:56 Acetaminophen 500mg Tab PO 12/16/21 18:56 1,000 mg ONCE ONE Administration Iopamidol 70 ml 12/16/21 19:53 12/16/21 19:54 Iopamidol-370 (76%);100ml Bottle IV 12/16/21 19:54 70 ml ONCE ONE Administration Ondansetron HCl 4 mg 12/16/21 19:55 12/16/21 19:57 Ondansetron 4mg/2ml Vial IV 12/16/21 19:56 4 mg ONCE ONE Administration Sodium Chloride 50 ml 12/16/21 19:53 12/16/21 19:54 0.9 % Sodium Chloride 50 Ml Vial IV 12/16/21 19:54 50 ml ONCE ONE Administration Sodium Chloride 10 ml 12/16/21 1
[2021-12-16 18:49] LABS: Basophils # 0.2 K/mm3 (0-0.2); Basophils % 1.9 % (0.1-2.0); Eosinophils # 0.1 K/mm3 (0.0-0.4); Eosinophils % 0.6 % (0.1-12.0); Hematocrit 44.5 % (42.0-52.0); Hemoglobin 15.3 g/dL (14.1-18.0); Lymphocytes # 0.5 K/mm3 (0.7-4.5); Lymphocytes % 5.5 % (10-50); Mean Corpuscular HGB Conc 34.4 g/dL (31.8-35.4); Mean Corpuscular Hemoglobin 30.1 pg (27.0-31.2); Mean Corpuscular Volume 87.4 fl (80-94); Mean Platelet Volume 7.8 fl (7.4-10.4); Monocytes # 0.2 K/mm3 (0.1-1.0); Monocytes % 2.1 % (1.7-9.3); Neutrophils # 7.7 K/mm3 (1.8-7.8); Neutrophils % 89.9 % (37.0-80.0); Platelet Count 495 K/mm3 (142-424); Red Blood Count 5.08 M/mm3 (4.60-6.20); Red Cell Distribution Width 12.5 % (11.5-17.5); White Blood Count 8.6 K/mm3 (4.8-10.8)
[2021-12-16 18:56] LABS: MANUAL DIFFERENTIAL MANUAL DIFFERENTIAL (MANUAL DIFF)
--- NOTE | 2021-12-16 18:57 | PC.NURSE ---
PT PLACED ON 02@ 2LPM , O2 SATS WERE 89% TO 90% RA AFTER O2 APPLIED O2 SAT 93%
[2021-12-16 18:58] LABS: Influenza A, PCR Not Detected (NotDetected); Influenza B, PCR Not Detected (NotDetected)
[2021-12-16 18:58] LABS: Blood Urea Nitrogen 14 mg/dl (9-20); Calcium 8.7 mg/dl (8.4-10.2); Chloride 89 mmol/L (98-107); Creatinine Clearance Estimated 71 mL/min (50-200); Estimated Glomerular Filt Rate 76 ml/min (>60); GFR (African American) 93 ML/MIN (>60); Glucose 118 mg/dl (74-100); Potassium 3.3 mmoL/L (3.5-5.1)
[2021-12-16 19:10] LABS: Troponin I 0.02 ng/ml (0.00-0.034)
[2021-12-16 19:13] LABS: Anion Gap 13.3 mEq/L (5-15); Carbon Dioxide 31 mmol/L (22.0-30.0); Sodium 130 mmol/L (136-145)
--- NOTE | 2021-12-16 19:23 | CT_ITS ---
PROCEDURE INFORMATION: Exam: CTA Chest With Contrast Exam date and time: 12/16/2021 7:23 PM Age: 61 years old Clinical indication: Shortness of breath; Additional info: Covid, SOA, chest pain TECHNIQUE: Imaging protocol: Computed tomographic angiography of the chest with contrast. 3D rendering (Not supervised by radiologist): MIP and/or 3D reconstructed images were created by the technologist. Radiation optimization: All CT scans at this facility use at least one of these dose optimization techniques: automated exposure control; mA and/or kV adjustment per patient size (includes targeted exams where dose is matched to clinical indication); or iterative reconstruction. Contrast material: ISOVUE 370; Contrast volume: 70 ml; Contrast route: INTRAVENOUS (IV); COMPARISON: 1. CT ANGIO CHEST 10/14/2020 3:37 PM 2. CR XR CHEST PORTABLE 12/16/2021 6:54 PM FINDINGS: Pulmonary arteries: Normal. No pulmonary emboli. Aorta: Unremarkable. No aortic aneurysm. No aortic dissection. Lungs: Extensive patchy areas of ground-glass opacity and airspace consolidation throughout both lungs. Comparison across modalities is inexact, but findings are unchanged since the most recent prior exam. Pleural spaces: Unremarkable. No pneumothorax. No pleural effusion. Heart: Unremarkable. No cardiomegaly. No pericardial effusion. Lymph nodes: Unremarkable. No enlarged lymph nodes. Bones/joints: Unremarkable. No acute fracture. Soft tissues: Unremarkable. IMPRESSION: Bilateral pneumonia with features commonly associated with viral infections. Differential consideration should include bacterial pneumonia. No pulmonary emboli.
[2021-12-16 19:51] LABS: Coronavirus 19, PCR Detected (NotDetected)
[2021-12-16 19:59] LABS: Lactate Dehydrogenase 152 U/L (313-618)
[2021-12-16 20:00] VITALS: BP 147/85; PULSE 94; RESP 45; O2SAT 91
[2021-12-16 20:31] VITALS: BP 131/78; PULSE 97; RESP 21; O2SAT 90
[2021-12-16 20:38] LABS: Lymphocytes % 11 % (10-50); Monocytes % 1 % (2-9); Neutrophils % 86 % (42-76); Platelet Estimate Slight Increase; RBC Morphology Normal; Total Cells Counted 100
[2021-12-16 21:11] VITALS: BP 129/89; PULSE 93; RESP 20; TEMP 37.2; O2SAT 93
--- NOTE | 2021-12-16 21:46 | PC.NURSE ---
patient up to floor via wheelchair @ this time
[2021-12-16 21:54] VITALS: BP 121/82; PULSE 101; RESP 18; TEMP 36.3; O2SAT 93; BMI 28.0
[2021-12-16 22:01] VITALS: BMI 27.4
[2021-12-17 04:00] VITALS: BP 142/82; PULSE 88; RESP 18; TEMP 36.8; O2SAT 91
--- NOTE | 2021-12-17 05:04 | PC.NURSE ---
Pt new admit this shift. o2 has been titrated throughout shift d/t O2 sats dropping into low to mid 80's when pt sleeps. Pt is currently on 35% Venti at 6LPm d/t mouth breathing and apnea. Pt has no complaints reported to staff. Pt ambulates independently and has remained afebrile. Voiding clear, yellow urine without issues. NS infusing per MAR.
--- NOTE | 2021-12-17 06:36 | PC.NURSE ---
Pt placed on 50% venti by RT
--- NOTE | 2021-12-17 06:37 | PC.NURSE ---
IS best of 1500
--- NOTE | 2021-12-17 07:32 | P.CONPHA_ITS ---
[facility] Pharmacy VTE Monitoring - Patient Demographics Admission date: 12/16/21 Report Date: 12/17/21 Time: 07:32 Allergies/Adverse Reactions: Patient Allergies No Known Allergies Allergy (Verified 08/19/21 11:00) Height: 1.75 m Weight: 84.397 kg Patient Problems: Current Active Problems Pneumonia due to COVID-19 virus (Acute) Respiratory failure with hypoxia (Acute) - VTE Risk Labs: VTE Related Lab Results Hgb 15.3 g/dL (14.1-18.0) 12/16/21 18:35 Hct 44.5 % (42.0-52.0) 12/16/21 18:35 Plt Count 495 K/mm3 (142-424) H 12/16/21 18:35 BUN 14 mg/dl (9-20) 12/16/21 18:35 Creatinine 1.00 mg/dl (0.66-1.25) 12/16/21 18:35 Estimated Creat Clear 71 mL/min (50-200) 12/16/21 18:35 Was VTE Risk Assessment Performed: Yes VTE Score: 1 VTE Risk Level: Very Low Risk - Prophylaxis VTE Prophylaxis Ordered?: Yes Types of VTE Prophylaxis: TEDS Knee High, Pharmacological Location of Applied Device: Bilateral Lower Extremeties Pharmacologic Type: Enoxaparin
--- NOTE | 2021-12-17 07:32 | HMH.PHAINT ---
MEDICATION RECONCILIATION COMPLETED ON PATIENT USING EXTERNAL FILL HISTORY FROM PHARMACY. -ISAI BRYANT, MEGAD
[2021-12-17 07:35] LABS: Anion Gap 9.4 mEq/L (5-15); Blood Urea Nitrogen 15 mg/dl (9-20); Calcium 8.4 mg/dl (8.4-10.2); Carbon Dioxide 29 mmol/L (22.0-30.0); Chloride 98 mmol/L (98-107); Creatinine Clearance Estimated 119 mL/min (50-200); Estimated Glomerular Filt Rate 99 ml/min (>60); GFR (African American) 120 ML/MIN (>60); Glucose 149 mg/dl (74-100); Potassium 3.4 mmoL/L (3.5-5.1); Sodium 133 mmol/L (136-145)
[2021-12-17 08:00] VITALS: BP 125/78; PULSE 89; RESP 22; TEMP 36.3; O2SAT 91
--- NOTE | 2021-12-17 08:37 | HMH.HP ---
*Admission Date: 12/16/21 *Chief complaint: Cough, congestion, shortness of air, Covid positive *History of present illness: 61-year-old white male who has really no past medical history, is a non-smoker, does not use oxygen or have lung disease at home, diagnosed with Covid 9 days ago. Initially felt okay but 2 days later began to have coughing, shortness of air and this became worse, came to the emergency department yesterday evening and found to have a new oxygen requirement. Infiltrates on chest x-ray, admitted to hospital for IV antibiotics, oxygen therapy and further diagnostic testing. He is unvaccinated for COVID-19. [facility] History I have reviewed the patient's past medical history: Yes Medical History: Denies:: Cancer, Diabetes Mellitus Type 1, Diabetes Mellitus Type 2, Hypertension, MRSA *Have you ever received a pneumonia vaccine?: No *Have you received a flu vaccine this season?: No Other Surgeries: Yes: Other Amputation: No Fractures: No - *Social History Last grade of school completed: High school graduate Smoking Status: Never smoker Alcohol Intake: never Alcohol Intake Frequency:: holidays/special occasions only *Occupational Status:: unemployed Housing: house Household Members: significant other *Travel in the last 8 weeks: None Family Hx:: No significant family history Review of Systems - Review of Systems Review of systems:: pertinent systems reviewed and negative unless documented below Meds Home Medications Medication Instructions Recorded Confirmed Type Ibuprofen [Ibuprofen 800mg 800 mg PO Q8HP PRN #30 tab 11/06/21 12/17/21 Rx Tablet] Allergies Allergy/AdvReac Type Severity Reaction Status Date / Time No Known Allergies Allergy Verified 08/19/21 11:00 Exam Vital signs and Labs for Last 24 Hours: Temp Pulse Resp BP Pulse Ox 98.2 F 88 18 142/82 H 91 L 12/17/21 04:00 12/17/21 04:00 12/17/21 04:00 12/17/21 04:00 12/17/21 04:00 Laboratory Results - last 24 hr 12/16/21 18:35: WBC 8.6, RBC 5.08, Hgb 15.3, Hct 44.5, MCV 87.4, MCH 30.1, MCHC 34.4, RDW 12.5, Plt Count 495 H, MPV 7.8, Neut % (Auto) 89.9 H, Lymph % (Auto) 5.5 L, [place] % (Auto) 2.1, Eos % (Auto) 0.6, Baso % (Auto) 1.9, Neut # (Auto) 7.7, Lymph # (Auto) 0.5 L, [place] # (Auto) 0.2, Eos # (Auto) 0.1, Baso # (Auto) 0.2, Total Counted 100, Neutrophils % (Manual) 86 H, Band Neutrophils % 2.0, Lymphocytes % (Manual) 11, Monocytes % (Manual) 1 L, Platelet Estimate Slight increase, RBC Morphology Normal 12/16/21 18:35: Sodium 130 L, Potassium 3.3 L, Chloride 89 L, Carbon Dioxide 31 H, Anion Gap 13.3, BUN 14, Creatinine 1.00, Estimated Creat Clear 71, Estimated GFR 76, Est GFR ( Amer) 93, Glucose 118 H, Calcium 8.7, Troponin I 0.02 12/16/21 18:50: SARS-CoV-2 (PCR) Detected A, Influenza A Untype (PCR) Not detected, Influenza Type B (PCR) Not detected 12/16/21 19:30: Lactate Dehydrogenase 152 L, C-Reactive Protein 69.0 H 12/17/21 06:33: Sodium 133 L, Potassium 3.4 L, Chloride 98, Carbon Dioxide 29, Anion Gap 9.4, BUN 15, Creatinine 0.80, Estimated Creat Clear 119, Estimated GFR 99, Est GFR ( Amer) 120 D, Glucose 149 H D, Calcium 8.4 I & O for Last 24 hours: Intake & Output 12/14/21 12/15/21 12/16/21 12/17/21 11:59 11:59 11:59 11:59 Weight 186 lb 1 oz - Constitutional mild distress - *Routine HEENT Exam Head: Present: normocephalic Eye: Present: EOMI, PERRL ENT: Present: mucous membranes moist - *Routine Neck Exam Present: supple. Absent: lymphadenopathy - *Routine Respiratory Exam Present: rhonchi - *Routine Cardiovascular Exam Present: RRR - *Routine Abdominal Exam Present: soft, normoactive bowel sounds. Absent: tenderness - *Routine Rectal Exam Rectal:: deferred - *Routine Genitalia Exam Genitalia:: deferred - *Routine Extremities Exam Absent: cyanosis, clubbing, edema - *Routine Skin Exam Present: warm. Absent: rash - *Routine Neurological Exam Present: deborah
[2021-12-17 08:52] VITALS: O2SAT 92
[2021-12-17 12:00] VITALS: BP 123/89; PULSE 80; RESP 20; TEMP 36.3; O2SAT 91
[2021-12-17 16:00] VITALS: BP 123/79; PULSE 80; RESP 24; TEMP 36.4; O2SAT 92
[2021-12-17 20:00] VITALS: BP 108/66; PULSE 94; RESP 18; TEMP 36.6; O2SAT 90
[2021-12-18] VITALS (9 sets, daily range): BP systolic 115–144; BP diastolic 68–85; PULSE 59–94; RESP 20–24; TEMP 36.2–36.8; O2SAT 89–93; BMI 19.3
--- NOTE | 2021-12-18 06:23 | HMH.ACPN2 ---
Internal Medicine - PN: Subj *Date: 12/18/21 *Time: 09:24 Interval history: Mr. Simmons's overall doing well this morning. No acute events overnight. Stable oxygen requirement for the past 24 hours on high flow. Afebrile. Still feels short of breath, complaining of some diarrhea and nausea but no emesis. No headache or chest pain. Exam Vital signs and Labs for Last 24 Hours: Temp Pulse Resp BP Pulse Ox 98.0 F 71 20 144/82 H 91 L 12/18/21 04:00 12/18/21 04:00 12/18/21 04:00 12/18/21 04:00 12/18/21 04:00 Laboratory Results - last 24 hr 12/17/21 06:33: Sodium 133 L, Potassium 3.4 L, Chloride 98, Carbon Dioxide 29, Anion Gap 9.4, BUN 15, Creatinine 0.80, Estimated Creat Clear 119, Estimated GFR 99, Est GFR ( Amer) 120 D, Glucose 149 H D, Calcium 8.4 I & O for Last 24 hours: Intake & Output 12/15/21 12/16/21 12/17/21 12/18/21 23:59 23:59 23:59 23:59 Intake Total 840 / 840 Output Total 300 / 300 Balance 540 / 540 Weight 84.397 kg Microbiology Reports for the Last 24 Hours: Microbiology 12/17/21 18:53 Sputum - Expectorated Sputum Gram Stain - Final - Constitutional mild distress - *Routine HEENT Exam Head: Present: normocephalic Eye: Present: EOMI, PERRL ENT: Present: mucous membranes moist - *Routine Neck Exam Present: supple. Absent: lymphadenopathy - *Routine Respiratory Exam Present: wheezes, crackles, diminished air movement. Absent: rhonchi - *Routine Cardiovascular Exam Present: RRR - *Routine Abdominal Exam Present: soft, normoactive bowel sounds. Absent: tenderness - *Routine Extremities Exam Absent: cyanosis, clubbing, edema - *Routine Skin Exam Present: warm. Absent: rash - *Routine Neurological Exam Present: alert, oriented X3 Assessment and Plan (1) Pneumonia due to COVID-19 virus Status: Acute Category: Medical Code(s): U07.1 - COVID-19; J12.82 - Pneumonia due to coronavirus disease 2019 (2) Respiratory failure with hypoxia Status: Acute Qualifiers: Chronicity: acute Qualified Code(s): J96.01 - Acute respiratory failure with hypoxia Category: Medical Code(s): J96.91 - Respiratory failure, unspecified with hypoxia - Assessment and plan all Dx Assessment and Plan for all problems:: 61-year-old male with no significant comorbidities who presents with COVID-19 pneumonia. He is unvaccinated. Problems addressed as follows: Acute hypoxemic respiratory failure secondary to COVID-19 pneumonia -Initiated on Covid bundle per protocol including remdesivir, dexamethasone, ceftriaxone for community-acquired pneumonia coverage as he has had symptoms for over a week. Treating with vitamin supplementation including vitamin C, zinc, vitamin D. Famotidine for GI prophylaxis and Lovenox per protocol. -Continue supplemental oxygen as needed for goal saturation greater 90%. Wean as tolerated. -Initiate duo nebs given crackles and wheeze -Incentive spirometry Discontinue IV fluids today, tolerating good p.o. intake. Potassium low on morning labs, will replete today Full code Regular diet Continues to require inpatient management.
[2021-12-18 07:57] LABS: Alanine Aminotransferase 57 U/L (12-78); Albumin Level 3.1 g/dl (3.5-5.0); Albumin/Globulin Ratio 1.1 (1.1-1.8); Alkaline Phosphatase 104 U/L (38-126); Anion Gap 6.2 mEq/L (5-15); Aspartate Amino Transferase 76 U/L (17-59); Bilirubin,Total 0.5 mg/dl (0.2-1.3); Blood Urea Nitrogen 18 mg/dl (9-20); Calcium 8.1 mg/dl (8.4-10.2); Carbon Dioxide 30 mmol/L (22.0-30.0); Chloride 101 mmol/L (98-107); Creatinine Clearance Estimated 83 mL/min (50-200); Estimated Glomerular Filt Rate 99 ml/min (>60); GFR (African American) 120 ML/MIN (>60); Globulin 2.9 g/dL (1.3-3.2); Glucose 141 mg/dl (74-100); Potassium 3.2 mmoL/L (3.5-5.1); Sodium 134 mmol/L (136-145)
[2021-12-18 08:09] LABS: Basophils # 0.1 K/mm3 (0-0.2); Basophils % 0.6 % (0.1-2.0); Hematocrit 41.9 % (42.0-52.0); Hemoglobin 13.9 g/dL (14.1-18.0); Lymphocytes % 6.7 % (10-50); Mean Corpuscular HGB Conc 33.3 g/dL (31.8-35.4); Mean Corpuscular Hemoglobin 30.1 pg (27.0-31.2); Mean Corpuscular Volume 90.5 fl (80-94); Mean Platelet Volume 7.8 fl (7.4-10.4); Monocytes # 0.5 K/mm3 (0.1-1.0); Monocytes % 3.2 % (1.7-9.3); Neutrophils # 12.6 K/mm3 (1.8-7.8); Neutrophils % 89.5 % (37.0-80.0); Platelet Count 521 K/mm3 (142-424); Red Blood Count 4.63 M/mm3 (4.60-6.20); Red Cell Distribution Width 13.2 % (11.5-17.5); White Blood Count 14.1 K/mm3 (4.8-10.8)
[2021-12-18 08:47] LABS: MANUAL DIFFERENTIAL MANUAL DIFFERENTIAL (MANUAL DIFF)
[2021-12-18 09:13] LABS: Magnesium 2.4 mg/dl (1.6-2.3)
[2021-12-18 09:18] LABS: Lymphocytes % 6 % (10-50); Monocytes % 2 % (2-9); Neutrophils % 92 % (42-76); Total Cells Counted 100
[2021-12-18 09:19] LABS: Platelet Estimate Normal
--- NOTE | 2021-12-18 16:34 | PC.NURSE ---
Pt is going to take a shower
[2021-12-19] VITALS (8 sets, daily range): BP systolic 113–145; BP diastolic 65–88; PULSE 70–99; RESP 16–20; TEMP 36.4–36.9; O2SAT 89–96; BMI 28.8
--- NOTE | 2021-12-19 07:04 | HMH.ACPN2 ---
Internal Medicine - PN: Subj *Date: 12/19/21 *Time: 14:52 Interval history: Patient did well overnight. States he is coughing little bit more today. Denies fever, nausea, vomiting, headache. Stable oxygen requirement. Using incentive spirometer, makes him cough after he uses it. Exam Vital signs and Labs for Last 24 Hours: Temp Pulse Resp BP Pulse Ox 97.6 F 76 20 114/72 96 12/19/21 04:00 12/19/21 04:00 12/19/21 04:00 12/19/21 04:00 12/19/21 04:00 Laboratory Results - last 24 hr 12/18/21 07:34: WBC 14.1 H D, RBC 4.63, Hgb 13.9 L, Hct 41.9 L, MCV 90.5, MCH 30.1, MCHC 33.3, RDW 13.2, Plt Count 521 H, MPV 7.8, Neut % (Auto) 89.5 H, Lymph % (Auto) 6.7 L, [place] % (Auto) 3.2, Eos % (Auto) 0.0 L, Baso % (Auto) 0.6, Neut # (Auto) 12.6 H, Lymph # (Auto) 1.0, [place] # (Auto) 0.5, Eos # (Auto) 0.0, Baso # (Auto) 0.1, Total Counted 100, Neutrophils % (Manual) 92 H, Lymphocytes % (Manual) 6 L, Monocytes % (Manual) 2, Platelet Estimate Normal 12/18/21 07:34: Magnesium 2.4 H 12/18/21 07:34: Sodium 134 L, Potassium 3.2 L, Chloride 101, Carbon Dioxide 30, Anion Gap 6.2, BUN 18, Creatinine 0.80, Estimated Creat Clear 83, Estimated GFR 99, Est GFR ( Amer) 120, Glucose 141 H, Calcium 8.1 L, Total Bilirubin 0.5, AST 76 H, ALT 57, Alkaline Phosphatase 104, Total Protein 6.0 L, Albumin 3.1 L, Globulin 2.9, Albumin/Globulin Ratio 1.1 I & O for Last 24 hours: Intake & Output 12/16/21 12/17/21 12/18/21 12/19/21 23:59 23:59 23:59 23:59 Intake Total 840 / 840 560 / 560 Output Total 300 / 300 Balance 540 / 540 560 / 560 Weight 84.397 kg 59.148 kg 88.451 kg Microbiology Reports for the Last 24 Hours: Microbiology 12/17/21 18:53 Sputum - Expectorated Sputum Gram Stain - Final Narrative: - Constitutional mild distress - *Routine HEENT Exam Head: Present: normocephalic Eye: Present: EOMI, PERRL ENT: Present: mucous membranes moist - *Routine Neck Exam Present: supple. Absent: lymphadenopathy - *Routine Respiratory Exam Present: No wheeze today, crackles intervally improved. Fair air movement bilaterally. No rhonchi - *Routine Cardiovascular Exam Present: RRR - *Routine Abdominal Exam Present: soft, normoactive bowel sounds. Absent: tenderness - *Routine Extremities Exam Absent: cyanosis, clubbing, edema - *Routine Skin Exam Present: warm. Absent: rash - *Routine Neurological Exam Present: alert, oriented X3 Assessment and Plan (1) Pneumonia due to COVID-19 virus Status: Acute Category: Medical Code(s): U07.1 - COVID-19; J12.82 - Pneumonia due to coronavirus disease 2019 (2) Respiratory failure with hypoxia Status: Acute Qualifiers: Chronicity: acute Qualified Code(s): J96.01 - Acute respiratory failure with hypoxia Category: Medical Code(s): J96.91 - Respiratory failure, unspecified with hypoxia (3) Hypokalemia Status: Acute Category: Medical Code(s): E87.6 - Hypokalemia - Assessment and plan all Dx Assessment and Plan for all problems:: 61-year-old male with no significant comorbidities who presents with COVID-19 pneumonia. He is unvaccinated. Problems addressed as follows: Acute hypoxemic respiratory failure secondary to COVID-19 pneumonia -Initiated on Covid bundle per protocol including remdesivir, dexamethasone, ceftriaxone for community-acquired pneumonia coverage as he has had symptoms for over a week. Treating with vitamin supplementation including vitamin C, zinc, vitamin D. Famotidine for GI prophylaxis and Lovenox per protocol. -Continue supplemental oxygen as needed for goal saturation greater 90%. Wean as tolerated. - continue duo nebs and incentive spirometry tolerating good p.o. intake. Hypokalemia: Potassium low on morning labs, will replete today Full code Regular diet Continues to require inpatient management.
[2021-12-19 07:36] LABS: Basophils # 0.1 K/mm3 (0-0.2); Basophils % 0.7 % (0.1-2.0); Eosinophils % 0.1 % (0.1-12.0); Hematocrit 44.5 % (42.0-52.0); Hemoglobin 14.9 g/dL (14.1-18.0); Lymphocytes # 0.7 K/mm3 (0.7-4.5); Lymphocytes % 6.9 % (10-50); Mean Corpuscular HGB Conc 33.6 g/dL (31.8-35.4); Mean Corpuscular Hemoglobin 29.9 pg (27.0-31.2); Mean Corpuscular Volume 88.9 fl (80-94); Mean Platelet Volume 9.8 fl (7.4-10.4); Monocytes # 0.9 K/mm3 (0.1-1.0); Monocytes % 8.6 % (1.7-9.3); Neutrophils # 9.1 K/mm3 (1.8-7.8); Neutrophils % 83.6 % (37.0-80.0); Platelet Count 527 K/mm3 (142-424); Red Blood Count 5.01 M/mm3 (4.60-6.20); Red Cell Distribution Width 12.9 % (11.5-17.5); White Blood Count 10.8 K/mm3 (4.8-10.8)
[2021-12-19 09:38] LABS: Alanine Aminotransferase 63 U/L (12-78); Albumin Level 2.8 g/dl (3.5-5.0); Alkaline Phosphatase 88 U/L (38-126); Anion Gap 8.9 mEq/L (5-15); Aspartate Amino Transferase 59 U/L (17-59); Bilirubin,Total 0.4 mg/dl (0.2-1.3); Blood Urea Nitrogen 20 mg/dl (9-20); Carbon Dioxide 28 mmol/L (22.0-30.0); Chloride 105 mmol/L (98-107); Creatinine Clearance Estimated 124 mL/min (50-200); Estimated Glomerular Filt Rate 99 ml/min (>60); GFR (African American) 120 ML/MIN (>60); Globulin 2.7 g/dL (1.3-3.2); Glucose 229 mg/dl (74-100); Sodium 139 mmol/L (136-145); Total Protein,Serum 5.5 g/dl (6.3-8.2)
[2021-12-19 09:54] LABS: Potassium 2.9 mmoL/L (3.5-5.1)
[2021-12-20] VITALS (10 sets, daily range): BP systolic 115–133; BP diastolic 68–90; PULSE 72–107; RESP 16–20; TEMP 36.4–37.1; O2SAT 90–95; BMI 28.4
--- NOTE | 2021-12-20 05:05 | PC.NURSE ---
Addendum entered by Gabi Quesada RN 12/20/21 05:10: Pt has remained afebrile. Original Note: No acute episodes or complaints during my shift thus far. Pt is currently on 12 L high flow nasal cannula and maintaining O2 sat >90%. Pt is being monitored via continuous pulse ox. Incentive spirometer at bedside and instructed to use. Pt is on lovenox for VTE prophylaxis. Medicating per JAN, call light in reach.
[2021-12-20 06:30] LABS: Alanine Aminotransferase 85 U/L (12-78); Albumin Level 2.8 g/dl (3.5-5.0); Albumin/Globulin Ratio 1.1 (1.1-1.8); Alkaline Phosphatase 86 U/L (38-126); Aspartate Amino Transferase 134 U/L (17-59); Bilirubin,Total 0.5 mg/dl (0.2-1.3); Blood Urea Nitrogen 11 mg/dl (9-20); Calcium 7.8 mg/dl (8.4-10.2); Carbon Dioxide 32 mmol/L (22.0-30.0); Chloride 101 mmol/L (98-107); Creatinine Clearance Estimated 122 mL/min (50-200); Estimated Glomerular Filt Rate 99 ml/min (>60); GFR (African American) 120 ML/MIN (>60); Globulin 2.6 g/dL (1.3-3.2); Glucose 93 mg/dl (74-100); Sodium 136 mmol/L (136-145); Total Protein,Serum 5.4 g/dl (6.3-8.2)
--- NOTE | 2021-12-20 07:12 | HMH.ACPN2 ---
Internal Medicine - PN: Subj *Date: 12/20/21 *Time: 11:23 Interval history: Did well overnight. No acute distress. Stable on 12 L high flow nasal cannula. Tolerating fair p.o. intake. Complaining of some upset stomach but no vomiting. No headache or chest pain. Exam Vital signs and Labs for Last 24 Hours: Temp Pulse Resp BP Pulse Ox 98.8 F 100 H 20 129/68 90 L 12/20/21 04:00 12/20/21 05:40 12/20/21 04:00 12/20/21 04:00 12/20/21 05:40 Laboratory Results - last 24 hr 12/19/21 05:15: Sodium 139, Potassium 2.9 L*, Chloride 105, Carbon Dioxide 28, Anion Gap 8.9, BUN 20, Creatinine 0.80, Estimated Creat Clear 124, Estimated GFR 99, Est GFR ( Amer) 120, Glucose 229 H D, Calcium 8.0 L, Total Bilirubin 0.4, AST 59, ALT 63, Alkaline Phosphatase 88, Total Protein 5.5 L, Albumin 2.8 L, Globulin 2.7, Albumin/Globulin Ratio 1.0 L 12/19/21 05:15: WBC 10.8, RBC 5.01, Hgb 14.9, Hct 44.5, MCV 88.9, MCH 29.9, MCHC 33.6, RDW 12.9, Plt Count 527 H, MPV 9.8, Neut % (Auto) 83.6 H, Lymph % (Auto) 6.9 L, [place] % (Auto) 8.6, Eos % (Auto) 0.1, Baso % (Auto) 0.7, Neut # (Auto) 9.1 H, Lymph # (Auto) 0.7, [place] # (Auto) 0.9, Eos # (Auto) 0.0, Baso # (Auto) 0.1 12/20/21 05:40: Sodium 136, Potassium 3.0 L, Chloride 101, Carbon Dioxide 32 H, Anion Gap 6.0, BUN 11 D, Creatinine 0.80, Estimated Creat Clear 122, Estimated GFR 99, Est GFR ( Amer) 120, Glucose 93, Calcium 7.8 L, Total Bilirubin 0.5, AST 134 H D, ALT 85 H D, Alkaline Phosphatase 86, Total Protein 5.4 L, Albumin 2.8 L, Globulin 2.6, Albumin/Globulin Ratio 1.1 I & O for Last 24 hours: Intake & Output 12/17/21 12/18/21 12/19/21 12/20/21 23:59 23:59 23:59 23:59 Intake Total 840 / 840 560 / 560 1080 / 1080 500 / 500 Output Total 300 / 300 250 / 250 Balance 540 / 540 560 / 560 830 / 830 500 / 500 Weight 59.148 kg 88.451 kg 87.09 kg Microbiology Reports for the Last 24 Hours: Microbiology 12/17/21 18:53 Sputum - Expectorated Sputum Gram Stain - Final 12/17/21 18:53 Sputum - Expectorated Sputum Sputum Culture - Final Normal Respiratory Aura Narrative: - Constitutional NAD on 12L HiFlow NC - *Routine HEENT Exam Head: Present: normocephalic Eye: Present: EOMI, PERRL ENT: Present: mucous membranes moist - *Routine Neck Exam Present: supple. Absent: lymphadenopathy - *Routine Respiratory Exam Present: No wheeze, crackles stable and diffuse. Fair air movement bilaterally. No rhonchi - *Routine Cardiovascular Exam Present: RRR - *Routine Abdominal Exam Present: soft, normoactive bowel sounds. Non-tender - *Routine Extremities Exam Absent: cyanosis, clubbing, edema - *Routine Skin Exam Present: warm. Absent: rash - *Routine Neurological Exam Present: alert, oriented X3 Assessment and Plan (1) Pneumonia due to COVID-19 virus Status: Acute Category: Medical Code(s): U07.1 - COVID-19; J12.82 - Pneumonia due to coronavirus disease 2019 (2) Respiratory failure with hypoxia Status: Acute Qualifiers: Chronicity: acute Qualified Code(s): J96.01 - Acute respiratory failure with hypoxia Category: Medical Code(s): J96.91 - Respiratory failure, unspecified with hypoxia (3) Hypokalemia Status: Acute Category: Medical Code(s): E87.6 - Hypokalemia - Assessment and plan all Dx Assessment and Plan for all problems:: 61-year-old male with no significant comorbidities who presents with COVID-19 pneumonia. He is unvaccinated. Problems addressed as follows: Acute hypoxemic respiratory failure secondary to COVID-19 pneumonia -Initiated on Covid bundle per protocol including remdesivir, dexamethasone, ceftriaxone for community-acquired pneumonia coverage as he has had symptoms for over a week. Treating with vitamin supplementation including vitamin C, zinc, vitamin D. Famotidine for GI prophylaxis and Lovenox per protocol. - Continue supplemental oxygen as needed for goal saturati
--- NOTE | 2021-12-20 08:54 | P.PN_ITS ---
Internal Medicine - PN: Subj *Date: 12/20/21 *Time: 08:54 Exam Vital signs and Labs for Last 24 Hours: Temp Pulse Resp BP Pulse Ox 98.5 F 102 H 16 115/72 91 L 12/20/21 07:54 12/20/21 07:54 12/20/21 07:54 12/20/21 07:54 12/20/21 07:54 Laboratory Results - last 24 hr 12/19/21 05:15: Sodium 139, Potassium 2.9 L*, Chloride 105, Carbon Dioxide 28, Anion Gap 8.9, BUN 20, Creatinine 0.80, Estimated Creat Clear 124, Estimated GFR 99, Est GFR ( Amer) 120, Glucose 229 H D, Calcium 8.0 L, Total Bilirubin 0.4, AST 59, ALT 63, Alkaline Phosphatase 88, Total Protein 5.5 L, Albumin 2.8 L , Globulin 2.7, Albumin/Globulin Ratio 1.0 L 12/20/21 05:40: Sodium 136, Potassium 3.0 L, Chloride 101, Carbon Dioxide 32 H, Anion Gap 6.0, BUN 11 D, Creatinine 0.80, Estimated Creat Clear 122, Estimated GFR 99, Est GFR ( Amer) 120, Glucose 93, Calcium 7.8 L, Total Bilirubin 0.5, AST 134 H D, ALT 85 H D, Alkaline Phosphatase 86, Total Protein 5.4 L, Albumin 2.8 L, Globulin 2.6, Albumin/Globulin Ratio 1.1 I & O for Last 24 hours: Intake & Output 12/17/21 12/18/21 12/19/21 12/20/21 23:59 23:59 23:59 23:59 Intake Total 840 / 840 560 / 560 1080 / 1080 740 / 740 Output Total 300 / 300 250 / 250 Balance 540 / 540 560 / 560 830 / 830 740 / 740 Weight 59.148 kg 88.451 kg 87.09 kg Microbiology Reports for the Last 24 Hours: Microbiology 12/17/21 18:53 Sputum - Expectorated Sputum Gram Stain - Final 12/17/21 18:53 Sputum - Expectorated Sputum Sputum Culture - Final Normal Respiratory Aura Assessment and Plan (1) Pneumonia due to COVID-19 virus Status: Acute Category: Medical Code(s): U07.1 - COVID-19; J12.82 - Pneumonia due to coronavirus disease 2019 (2) Respiratory failure with hypoxia Status: Acute Qualifiers: Chronicity: acute Qualified Code(s): J96.01 - Acute respiratory failure with hypoxia Category: Medical Code(s): J96.91 - Respiratory failure, unspecified with hypoxia (3) Hypokalemia Status: Acute Category: Medical Code(s): E87.6 - Hypokalemia The patient's infection will respond to the chosen ABx?: Yes Is the patient receiving the right drug, dose, and route?: Yes Could a more targeted ABx be ordered?: No
[2021-12-21] VITALS (7 sets, daily range): BP systolic 123–132; BP diastolic 73–80; PULSE 77–106; RESP 16–20; TEMP 36.4–36.9; O2SAT 88–96; BMI 28.8
--- NOTE | 2021-12-21 04:39 | PC.NURSE ---
No acute episodes/changes. No complaints voiced to staff thus far during my shift. Pt is currently on 12 L high flow nasal cannula, crackles auscultated in lung bases. Up ad chely, states diarrhea has subsided. Voiding adequately. Pt states he is feeling much better. Call light in reach.
[2021-12-21 07:01] LABS: Alanine Aminotransferase 82 U/L (12-78); Albumin Level 2.8 g/dl (3.5-5.0); Albumin/Globulin Ratio 1.1 (1.1-1.8); Alkaline Phosphatase 80 U/L (38-126); Anion Gap 5.8 mEq/L (5-15); Aspartate Amino Transferase 78 U/L (17-59); Bilirubin,Total 0.5 mg/dl (0.2-1.3); Blood Urea Nitrogen 12 mg/dl (9-20); Calcium 8.1 mg/dl (8.4-10.2); Carbon Dioxide 33 mmol/L (22.0-30.0); Chloride 102 mmol/L (98-107); Creatinine Clearance Estimated 124 mL/min (50-200); Estimated Glomerular Filt Rate 99 ml/min (>60); GFR (African American) 120 ML/MIN (>60); Globulin 2.6 g/dL (1.3-3.2); Glucose 122 mg/dl (74-100); Magnesium 2.1 mg/dl (1.6-2.3); Potassium 3.8 mmoL/L (3.5-5.1); Sodium 137 mmol/L (136-145); Total Protein,Serum 5.4 g/dl (6.3-8.2)
--- NOTE | 2021-12-21 09:01 | P.PN_ITS ---
Internal Medicine - PN: Subj *Date: 12/21/21 *Time: 09:01 Interval history: Patient feels good, has been up and around to the bathroom without oxygen without shortness of air. Wishes to be discharged home. Exam Vital signs and Labs for Last 24 Hours: Temp Pulse Resp BP Pulse Ox 97.6 F 106 H 18 123/76 93 L 12/21/21 07:43 12/21/21 07:43 12/21/21 07:43 12/21/21 07:43 12/21/21 07:43 Laboratory Results - last 24 hr 12/21/21 06:26: Sodium 137, Potassium 3.8 D, Chloride 102, Carbon Dioxide 33 H, Anion Gap 5.8, BUN 12, Creatinine 0.80, Estimated Creat Clear 124, Estimated GFR 99, Est GFR ( Amer) 120, Glucose 122 H, Calcium 8.1 L, Magnesium 2.1 D, Total Bilirubin 0.5, AST 78 H D, ALT 82 H, Alkaline Phosphatase 80, Total Protein 5.4 L, Albumin 2.8 L, Globulin 2.6, Albumin/Globulin Ratio 1.1 I & O for Last 24 hours: Intake & Output 12/18/21 12/19/21 12/20/21 12/21/21 11:59 11:59 11:59 11:59 Intake Total 780 / 780 740 / 740 1700 / 1700 1200 / 1200 Output Total 0 / 0 500 / 500 Balance 780 / 780 740 / 740 1200 / 1200 1200 / 1200 Weight 130 lb 6.4 oz 195 lb 192 lb 195 lb Microbiology Reports for the Last 24 Hours: Microbiology 12/17/21 18:53 Sputum - Expectorated Sputum Gram Stain - Final 12/17/21 18:53 Sputum - Expectorated Sputum Sputum Culture - Final Normal Respiratory Aura - Constitutional no acute distress - *Routine HEENT Exam Head: Present: normocephalic Eye: Present: EOMI, PERRL ENT: Present: mucous membranes moist - *Routine Neck Exam Present: supple. Absent: lymphadenopathy - *Routine Respiratory Exam Present: CTA bilaterally - *Routine Cardiovascular Exam Present: RRR - *Routine Abdominal Exam Present: soft, normoactive bowel sounds. Absent: tenderness - *Routine Extremities Exam Absent: cyanosis, clubbing, edema - *Routine Skin Exam Present: warm. Absent: rash - *Routine Neurological Exam Present: alert, oriented X3 Assessment and Plan (1) Pneumonia due to COVID-19 virus Status: Acute Category: Medical Code(s): U07.1 - COVID-19; J12.82 - Pneumonia due to coronavirus disease 2019 (2) Respiratory failure with hypoxia Status: Acute Qualifiers: Chronicity: acute Qualified Code(s): J96.01 - Acute respiratory failure with hypoxia Category: Medical Code(s): J96.91 - Respiratory failure, unspecified with hypo elaine (3) Hypokalemia Status: Acute Category: Medical Code(s): E87.6 - Hypokalemia - Assessment and plan all Dx Assessment and Plan for all problems:: Overall improving. Turn oxygen down to 8 L. If he remains above 85% O2 saturation we will consider discharge home with oxygen.
--- NOTE | 2021-12-21 13:11 | SW/DCPLANNER ---
SENT ORDERS TO [facility] TO DELIVER PORTABLE TANK TO ROOM 200.. PATIENT DISCHARGING HOME TODAY AND WILL NEED A PORTABLE TANK TO GET HIM HOME.. HE HAS A COMMERCIAL INSURANCE AND I HAVE SPOKEN WITH HIM TO INFORM HIM THAT I AM NOT SURE IT WILL PAY BUT I SENT IT... I HAVE GIVEN HIS PHONE NUMBER TO [id number] FOR ANY QUESTIONS THEY MAY HAVE....DISCHARGE LATER IN THE AFTERNOON....
--- NOTE | 2021-12-21 14:36 | HMH.DCSUM ---
General - General Admission date:: 12/16/21 Discharge date: 12/21/21 HPI HPI: 61-year-old white male who has really no past medical history, is a non-smoker, does not use oxygen or have lung disease at home, diagnosed with Covid 9 days ago. Initially felt okay but 2 days later began to have coughing, shortness of air and this became worse, came to the emergency department yesterday evening and found to have a new oxygen requirement. Infiltrates on chest x-ray, admitted to hospital for IV antibiotics, oxygen therapy and further diagnostic testing. He is unvaccinated for COVID-19. Hospital Course Hospital Course: Patient was admitted, placed on supplemental oxygen, did well, did require Vapotherm settings, but over the weekend was able to be weaned down to a high flow nasal cannula and this morning was able to be down to 8 L and did well with O2 saturations in the 93% range. He'll be discharged home today, medicines as noted, we will follow up in our office to reassess oxygen delivery and need for further therapy in the next week. Objective Vital signs: Temp Pulse Resp BP Pulse Ox 98.1 F 103 H 16 132/78 88 L 12/21/21 12:00 12/21/21 12:00 12/21/21 12:00 12/21/21 12:00 12/21/21 13:00 no acute distress - *Routine HEENT Exam Head: Present: normocephalic Eye: Present: EOMI, PERRL ENT: Present: mucous membranes moist - *Routine Neck Exam Present: supple - *Routine Respiratory Exam Present: CTA bilaterally - *Routine Cardiovascular Exam Present: RRR - *Routine Abdominal Exam Present: soft, normoactive bowel sounds. Absent: tenderness - *Routine Extremities Exam Absent: cyanosis, clubbing, edema - *Routine Skin Exam Present: warm. Absent: rash - Detailed Eye Exam Eyelids: Bilateral normal inspection Results Labs on day of discharge: Labs from last 24 hours 12/21/21 06:26 Sodium 137 Potassium 3.8 D Chloride 102 Carbon Dioxide 33 H Anion Gap 5.8 BUN 12 Creatinine 0.80 Estimated Creat Clear 124 Estimated GFR 99 Est GFR ( Amer) 120 Glucose 122 H Calcium 8.1 L Magnesium 2.1 D Total Bilirubin 0.5 AST 78 H D ALT 82 H Alkaline Phosphatase 80 Total Protein 5.4 L Albumin 2.8 L Globulin 2.6 Albumin/Globulin Ratio 1.1 DS: Diagnosis - Discharge Diagnosis (1) Pneumonia due to COVID-19 virus Status: Acute (2) Respiratory failure with hypoxia Status: Acute (3) Hypokalemia Status: Acute Discharge Plan - Patient Discharge Instructions ACTIVITY: Continue current activity DIET: continue same diet Patient Instructions: DI for Respiratory Failure, DI for Hypoxia, DI for COVID-19 (Suspected or Confirmed ), Nutrition and Hydration: He Weapons in the Fight Against COVID-19 - Follow up Plan Follow up with: Jose Manuel Fishman MD [Primary Care Provider] - Disposition: Home, Self-Care Condition at discharge:: Improved Home Medications: Home Medications Medication Instructions Recorded Confirmed Type Ibuprofen [Ibuprofen 800mg 800 mg PO Q8HP PRN #30 tab 11/06/21 12/17/21 Rx Tablet] Ascorbic Acid [Vitamin C 500mg 500 mg PO QID #28 tab 12/21/21 Rx tablet] Ergocalciferol (Vitamin D2) 50,000 unit PO WEEKLY #4 cap 12/21/21 Rx [Drisdol 50,000 units (1.25mg) capsule] Zinc Sulfate [Zinc Sulfate 220mg 220 mg PO DAILY #7 cap 12/21/21 Rx capsule] Prescriptions/Medication Reconciliation: New Ergocalciferol (Vitamin D2) [Drisdol 50,000 units (1.25mg) capsule] 50,000 unit PO WEEKLY #4 cap Ascorbic Acid [Vitamin C 500mg tablet] 500 mg PO QID #28 tab Zinc Sulfate [Zinc Sulfate 220mg capsule] 220 mg PO DAILY #7 cap Continued Ibuprofen [Ibuprofen 800mg Tablet] 800 mg PO Q8HP PRN #30 tab PRN Reason: Moderate Pain - Problem Reconciliation Problems Reviewed?: Yes
== END 2021-12-21 15:40 | disposition home or self-care (01) | DRG 177 ==
LOC: ER 20:04 → 2ND 21:02
PROVIDERS: Internal Medicine Adolescent Medicine; Admitting Provider Internal Medicine Adolescent Medicine; Emergency Provider Emergency Medicine; PCP Internal Medicine Adolescent Medicine; Visit Provider Internal Medicine Adolescent Medicine
DX: U07.1 COVID-19 (principal); J12.82 Pneumonia due to coronavirus disease 2019; J96.01 Acute respiratory failure with hypoxia; E87.6 Hypokalemia
CPT/HCPCS: 36415; 71045; 71275; 80048; 80053; 83615; 83735; 84484; 85007; 85025; 86140; 87070; 87205; 93005; 94640; 94761; 96365; 96367; 96375; 99284; C9803; J0456; J0696; J2405; Q9967; U0003; U0005

== ENCOUNTER 2022-01-14 11:37 | Emergency (ER) | payer OTHER, SELFPAY ==
--- NOTE | 2022-01-14 11:55 | XR_ITS ---
FINAL REPORT CLINICAL HISTORY: SMASHED lt hand this am, pain FINDINGS: 3 views of the left hand were obtained. There is no acute fracture or dislocation. There are mild hypertrophic changes at the basilar joint. There is no soft tissue abnormality. IMPRESSION: No acute process. Reviewed, Interpreted and Dictated by Ramon Brooke MD Transcribed by Jovanny Rodrigues Authenticated by Ramon Brooke MD on 01/14/2022 12:51:47 PM [facility]
[2022-01-14 12:00] VITALS: BP 129/78; PULSE 76; RESP 17; TEMP 37.1; O2SAT 99; BMI 28.7
--- NOTE | 2022-01-14 12:10 | HMH.EDUTC ---
[facility] Disposition Clinical Impression: Hand contusion Qualifiers: Encounter type: initial encounter Laterality: left Qualified Code(s): S60.222A - Contusion of left hand, initial encounter Disposition: Home, Self-Care Condition on Discharge: Good Instructions: How To Perform RICE (Rest, Ice, Compress, Elevate) Additional Instructions: *RICE, Rest the extremity, Ice 15-20 minutes 3-4 times daily, Compress- wear the emmanuel wrap as discussed as much as possible to help reduce swelling and pain, Elevate the extremity when at rest *Emmanuel wrap/splint is for support and help control swelling, use it except in the shower. Be sure that is not to tight but not to loose either *Elevate when resting *Ibuprofen every 6-8 hours as needed for pain an inflammation. If need something more can take Tylenol in between doses of Ibuprofen to help Immediately follow up with your family doctor for new or worsening of symptoms, or no noticeable improvement over the next 3-5 days Follow up with Dr Hardin in Orthopedic if needed Return if needed Straight to ER if any life threatening symptoms Prescriptions: Amoxicillin/Potassium Clav [Augmentin 500mg tab] 500 mg PO TID #21 tab Transmission Status: Pending to [id number] Referrals: Jose Manuel Fishman MD [Primary Care Provider] - As needed Alejo Hardin MD [Staff Physician] - As needed Time of Disposition: 13:19 Medical Decision Making - Gerald Inquiry Pt receiving controlled substance: No Gerald was queried for this patient: No Vital Signs: 01/14/22 12:00 01/14/22 13:16 Temperature 98.8 F 98.8 F Temperature Source Oral Pulse Rate 76 Pulse Rate [Right Radial] 76 Respiratory Rate 17 18 Blood Pressure 129/78 Blood Pressure [Right Arm] 129/78 Blood Pressure Mean [Right Arm] 95 Blood Pressure Source [Right Arm] Automatic Cuff Blood Pressure Position [Right Arm] Sitting 02 Sat by Pulse Oximetry 99 Oxygen Delivery Method Room Air - Radiology Data #1 Image(s): Hand Image Reviewed: Yes I have reviewed radiologist's interpretation IMPRESSION: No acute process. [facility] HPI - General Stated complaint: AO 01/14 left hand pain Time Seen by Provider: 01/14/22 12:10 Mode of Arrival: Ambulatory Source of Information: Patient Limitations: No Limitations Description of Symptoms (Recalled from Triage Doc. by RN): C/O possible broken left hand HEENT Symptoms (Recalled from RN notes): No Resp Symptoms (Recalled from RN notes): No Skin Symptoms (Recalled from RN notes): No MS Symptoms (Recalled from RN notes): Yes (left hand injury) Functional Status (Recalled from RN notes): n/a - History of Present Illness Provider Complaint: Patient states that he was removing car from car melani when it slipped and his left hand got caught between bumper and melani States that he felt a crush sensation so he come in to get it checked - Related Data Previous Rx's Medication Instructions Recorded Ibuprofen [Ibuprofen 800mg 800 mg PO Q8HP PRN #30 tab 11/06/21 Tablet] Ascorbic Acid [Vitamin C 500mg 500 mg PO QID #28 tab 12/21/21 tablet] Ergocalciferol (Vitamin D2) 50,000 unit PO WEEKLY #4 cap 12/21/21 [Drisdol 50,000 units (1.25mg) capsule] Zinc Sulfate [Zinc Sulfate 220mg 220 mg PO DAILY #7 cap 12/21/21 capsule] Amoxicillin/Potassium Clav 500 mg PO TID #21 tab 01/14/22 [Augmentin 500mg tab] Allergies Allergy/AdvReac Type Severity Reaction Status Date / Time No Known Allergies Allergy Verified 08/19/21 11:00 - Worker's Comp Is this a Worker's Comp case?: No [facility] History - Hepatitis A Screen Drug use history?: No High risk sexual behaviors?: No History of sexually transmitted infection?: No Currently employed?: No Childcare worker?: No Do you have indoor plumbing?: Yes Do you have electricity?: Yes Attestation statement:: This patient has been screened for Hepatitis A risk factors. I have reviewed the patient's past medical history: Declan
[2022-01-14 13:16] VITALS: BP 129/78; PULSE 76; RESP 18; TEMP 37.1; O2SAT 99
== END 2022-01-14 13:28 | disposition home or self-care (01) ==
PROVIDERS: Emergency Provider Nurse Practitioner; PCP Internal Medicine Adolescent Medicine
DX: S60.222A Contusion of left hand, initial encounter (principal); W23.1XXA Caught, crushed, jammed, or pinched between stationary objects, initial encounter; Y92.89 Other specified places as the place of occurrence of the external cause
CPT/HCPCS: 73130; 99202; G0463

== ENCOUNTER 2022-02-18 09:27 | Emergency (ER) | payer OTHER, SELFPAY ==
--- NOTE | 2022-02-18 09:26 | ECG_ITS ---
APPROVED REPORT Exam: Resting ECG HR:67 bpm ECG Measurements Heart Rate 67 AXES MA 167 P 43 QRSd 90 QRS 14 QT 419 T 11 QTc 435 Conclusion SINUS RHYTHM LOW QRS VOLTAGE IN PRECORDIAL LEADS [QRS DEFLECTION < 1.0 mV IN CHEST LEADS] BORDERLINE ECG UNCONFIRMED REPORT Electronically signed by : Jose Manuel Fishman MD 02/20/2022 08:17:44
[2022-02-18 09:28] VITALS: BP 135/66; PULSE 66; RESP 16; TEMP 36.6; O2SAT 66; BMI 29.5
--- NOTE | 2022-02-18 09:29 | XR_ITS ---
FINAL REPORT CLINICAL HISTORY: cp COMPARISON: December 16, 2021 FINDINGS: A single portable view of the chest was obtained. The heart size and pulmonary vascularity are within normal limits. The mediastinum is within normal limits. There is improved aeration since the prior exam. There is persistent bibasilar atelectasis or scarring. The bony thorax is intact. IMPRESSION: Improved aeration with persistent bibasilar atelectasis or scarring. Reviewed, Interpreted and Dictated by Deondre Grigsby III, MD Transcribed by Jovanny Rodrigues Authenticated by Deondre Grigsby III, MD on 02/18/2022 10:15:18 AM [facility]
--- NOTE | 2022-02-18 09:30 | HMH.EDCP ---
ED Disposition Clinical Impression: Atypical chest pain Disposition: Home, Self-Care Condition on Discharge: Good Instructions: DI for Atypical Chest Pain Referrals: Provider,Key, [Primary Care Provider] - Harvinder Valles MD [Staff Physician] - - Critical Care Critical Care Time: No Attestation: On , the high probability of a clinically significant, sudden or life threatening deterioration of the following system(s) required my full and direct attention, intervention and personal management. The time I documented below is in addition to time spent performing reported procedures but includes the following listed in this critical care notation. Medical Decision Making - Medical Records Medical records reviewed: Yes: I reviewed the patient's medical records. - Gerald Inquiry Pt receiving controlled substance: No Vital Signs: 02/18/22 09:28 02/18/22 11:21 02/18/22 11:30 Temperature 98 F Temperature Source Oral Pulse Rate 61 Pulse Rate [Radial] 66 Respiratory Rate 16 21 Blood Pressure 115/74 121/80 Blood Pressure [Right Arm] 135/66 Blood Pressure Mean 97 Blood Pressure Mean [Right Arm] 89 Blood Pressure Position [Right Arm] Sitting 02 Sat by Pulse Oximetry 66 L 97 - Lab Data Lab Results 02/18/22 09:38: Sodium 140, Potassium 3.7, Chloride 109 H, Carbon Dioxide 24, Anion Gap 10.7, BUN 9, Creatinine 1.00, Estimated Creat Clear 102, Estimated GFR 76, Est GFR ( Amer) 93, Glucose 111 H, Calcium 8.6 02/18/22 09:39: WBC 5.8, RBC 4.59 L, Hgb 14.0 L, Hct 42.4, MCV 92.3, MCH 30.6, MCHC 33.1, RDW 14.0, Plt Count 251, MPV 8.0, Neut % (Auto) 48.9, Lymph % (Auto) 38.0, [place] % (Auto) 7.8, Eos % (Auto) 2.8, Baso % (Auto) 2.4 H, Neut # (Auto) 2.9, Lymph # (Auto) 2.2, [place] # (Auto) 0.5, Eos # (Auto) 0.2, Baso # (Auto) 0.1 02/18/22 09:39: Troponin I < 0.01, Lipase 103 02/18/22 09:39: Total Bilirubin 1.0, Direct Bilirubin 0.3, Conjugated Bilirubin 0.0, Indirect Bilirubin 0.7, Unconjugated Bilirubin 0.6, AST 30, ALT 25, Alkaline Phosphatase 65, Total Protein 6.9 D, Albumin 4.1 02/18/22 09:50: SARS-CoV-2 (PCR) Not detected, Influenza A Untype (PCR) Not detected, Influenza Type B (PCR) Not detected 02/18/22 11:51: Troponin I < 0.01 Result diagrams: 02/18/22 09:39 02/18/22 09:38 Orders (Tests/Meds): ED MEDICATIONS Discontinued Medications Generic Name Dose Route Start Last Admin Trade Name Freq PRN Reason Stop Dose Admin Aspirin 324 mg 02/18/22 09:29 02/18/22 09:57 Aspirin 81mg Chewable Tablet PO 02/18/22 09:30 324 mg ONCE ONE Administration ORDERS Category Date Time Status Troponin I Q3H Lab 02/18/22 15:45 Ordered - ECG Data Tracing #1 I reviewed this ECG and interpreted as documented below: ekg by me nsr, low volt, npo st eelv - Reevaluation(s) Time: 12:38 (reeval, appears well w/o complaint, ok with plan to f/u cardiology) Chest Pain HPI - General Chief Complaint: Chest Pain Stated Complaint: chest pain Time Seen by Provider: 02/18/22 09:30 Limitations: No Limitations - History of Present Illness HPI narrative: cp central intermittent mod assoc with soa several days concerned for covid Onset (ago): day(s) Pain location: substernal Severity: moderate Pain radiation: none Relieving factors: nothing Exacerbating factors: movement Associated symptoms: other (soa) - REBECCA Score for Non-Stemi Age of Patient: 50-59 years old Heart Rate: 50-69 bpm Systolic Blood Pressure: 120-139 mmhg Serum Creatinine: 0.80-1.19 mg/dl CHF [place] Class: I-No CHF - Related Data Previous Rx's Medication Instructions Recorded Ibuprofen [Ibuprofen 800mg 800 mg PO Q8HP PRN #30 tab 11/06/21 Tablet] Ascorbic Acid [Vitamin C 500mg 500 mg PO QID #28 tab 12/21/21 tablet] Ergocalciferol (Vitamin D2) 50,000 unit PO WEEKLY #4 cap 12/21/21 [Drisdol 50,000 units (1.25mg) capsule] Zinc Sulfate [Zinc Sulfate 220mg 220 mg PO DAILY #7 cap
[2022-02-18 09:57] LABS: Coronavirus 19, PCR Not Detected (NotDetected); Influenza A, PCR Not Detected (NotDetected); Influenza B, PCR Not Detected (NotDetected)
[2022-02-18 09:58] LABS: Basophils # 0.1 K/mm3 (0-0.2); Basophils % 2.4 % (0.1-2.0); Eosinophils # 0.2 K/mm3 (0.0-0.4); Eosinophils % 2.8 % (0.1-12.0); Hematocrit 42.4 % (42.0-52.0); Lymphocytes # 2.2 K/mm3 (0.7-4.5); Mean Corpuscular HGB Conc 33.1 g/dL (31.8-35.4); Mean Corpuscular Hemoglobin 30.6 pg (27.0-31.2); Mean Corpuscular Volume 92.3 fl (80-94); Monocytes # 0.5 K/mm3 (0.1-1.0); Monocytes % 7.8 % (1.7-9.3); Neutrophils # 2.9 K/mm3 (1.8-7.8); Neutrophils % 48.9 % (37.0-80.0); Platelet Count 251 K/mm3 (142-424); Red Blood Count 4.59 M/mm3 (4.60-6.20); White Blood Count 5.8 K/mm3 (4.8-10.8)
[2022-02-18 10:00] LABS: Alanine Aminotransferase 25 U/L (12-78); Alkaline Phosphatase 65 U/L (38-126); Aspartate Amino Transferase 30 U/L (17-59); Bilirubin,Direct 0.3 mg/dl (0.0-0.4); Bilirubin,Indirect 0.7 mg/dL (0.0-0.9); Bilirubin,Unconjugated 0.6 mg/dL (0.0-1.1)
[2022-02-18 10:01] LABS: Albumin Level 4.1 g/dl (3.5-5.0); Lipase 103 U/L (23-300); Total Protein,Serum 6.9 g/dl (6.3-8.2)
[2022-02-18 10:13] LABS: Troponin I < 0.01 ng/ml (0.00-0.034)
[2022-02-18 10:22] LABS: Chloride 109 mmol/L (98-107); Potassium 3.7 mmoL/L (3.5-5.1); Sodium 140 mmol/L (136-145)
[2022-02-18 10:25] LABS: Anion Gap 10.7 mEq/L (5-15); Blood Urea Nitrogen 9 mg/dl (9-20); Carbon Dioxide 24 mmol/L (22.0-30.0); Creatinine Clearance Estimated 102 mL/min (50-200); Estimated Glomerular Filt Rate 76 ml/min (>60); GFR (African American) 93 ML/MIN (>60)
[2022-02-18 10:26] LABS: Calcium 8.6 mg/dl (8.4-10.2); Glucose 111 mg/dl (74-100)
[2022-02-18 11:21] VITALS: BP 115/74; PULSE 61; RESP 21; O2SAT 97
[2022-02-18 11:30] VITALS: BP 121/80
[2022-02-18 12:00] VITALS: BP 121/77; PULSE 65; RESP 18; O2SAT 97
[2022-02-18 12:30] VITALS: BP 127/81; PULSE 65; RESP 18; O2SAT 97
[2022-02-18 12:35] LABS: Troponin I < 0.01 ng/ml (0.00-0.034)
--- NOTE | 2022-02-18 12:38 | PC.NURSE ---
ED MD at for update on POC
[2022-02-18 12:49] VITALS: BP 127/81; PULSE 65; RESP 18; TEMP 36.7; O2SAT 97
== END 2022-02-18 12:52 | disposition home or self-care (01) ==
PROVIDERS: Emergency Provider Emergency Medicine
DX: R07.89 Other chest pain (principal)
CPT/HCPCS: 71045; 80048; 80076; 83690; 84484; 85025; 93005; 99283; C9803; U0003; U0005